=== PATIENT | female | born 1940 | race Caucasian/White ===

== ENCOUNTER → 2020-10-16 01:05 | Outpatient (CLI) | payer MEDICARE, SELFPAY ==
[2020-10-16 19:15] LABS: SARS-CoV-2 RNA PCR Negative
== END ==
PROVIDERS: PCP Internal Medicine; Visit Provider Internal Medicine Gastroenterology
DX: Z01.812 Encounter for preprocedural laboratory examination (principal); Z20.822 Contact with and (suspected) exposure to COVID-19
CPT/HCPCS: C9803; U0003; U0005

== ENCOUNTER 2020-10-19 00:50 | Day surgery (SDC) | payer MEDICARE, SELFPAY ==
[2020-10-06 13:38] VITALS: BMI 26.7
--- NOTE | 2020-10-18 11:40 | WPDANESEPPF ---
Anes - Initial Pre Proc Eval Procedure: Operation Date: 10/19/20 08:30 Proposed Procedures p Screening Colonoscopy - Soham Quintana DO Date/Time: 10/18/20 11:40 Surgeon: Soham Quintana DO Pre Op Diagnosis: Neoplasm Screening Patient Data Age: 79 Gender: F Height: 1.57 m Weight: 66.3 kg Allergies Allergy/AdvReac Type Severity Reaction Status Date / Time No Known Drug Allergies Allergy Unknown X Verified 10/06/20 13:33 Home Medications Medication Instructions Recorded Confirmed Type calcium carbonate 500 mg calcium 500 mg PO DAILY 06/08/19 10/06/20 History (1,250 mg) chewable tablet cetirizine 10 mg tablet 10 mg PO DAILY PRN tablet 06/08/19 10/06/20 History fluticasone propionate 50 2 spray NASAL DAILY 06/08/19 10/19/20 History mcg/actuation nasal spray,suspension glucosamine sulfate 500 mg tablet 500 mg PO BID 06/08/19 10/06/20 History magnesium 250 mg tablet 250 mg PO DAILY 06/08/19 10/06/20 History mecobalamin (vitamin B12) 1,000 1,000 mcg SUBLINGUAL DAILY 06/08/19 10/06/20 History mcg disintegrating tablet,sublingual metoprolol succinate 25 mg 25 mg PO DAILY 06/08/19 10/06/20 History tablet,extended release 24 hr pyridoxine (vitamin B6) 50 mg 50 mg PO DAILY 06/08/19 10/06/20 History tablet rivaroxaban 20 mg tablet 15 mg PO DAILY 06/08/19 10/19/20 History zinc sulfate 66 mg tablet 66 mg PO DAILY 06/08/19 10/19/20 History vitamin E 200 unit capsule 200 unit PO DAILY 06/14/19 10/19/20 History amlodipine 5 mg tablet 5 mg PO DAILY #30 tablet 12/14/19 10/19/20 Rx hydrochlorothiazide 25 mg tablet 25 mg PO DAILY #90 tablet 05/17/20 10/06/20 Rx levothyroxine 150 mcg tablet 150 mcg PO DAILY #90 tablet 06/26/20 10/06/20 Rx losartan 100 mg tablet 100 mg PO DAILY #90 tablet 06/26/20 10/06/20 Rx terazosin 2 mg capsule 2 mg PO .hs #90 cap 08/16/20 10/06/20 Rx Acidophilus Probiotic 1 caplet PO DAILY 10/19/20 10/19/20 History B-Complex W/Vitamin B-12 1 caplet PO DAILY 10/19/20 10/19/20 History potassium 1 caplet PO DAILY 10/19/20 10/19/20 History Patient hx anesthesia problems: none Family hx anesthesia problems: none PMFSH Past Medical History Medical History (Updated 10/19/20 @ 07:56 by Soham Quintana DO) Adenomatous colon polyp Anemia Elevated LDL cholesterol level Essential (primary) hypertension Hx of atrial fibrillation without current medication Hx of thyroid cancer Surgical History Surgical History (Updated 10/19/20 @ 07:57 by Soham Quintana DO) H/O colonoscopy H/O hemicolectomy History of hysterectomy Status post placement of other cardiac pacemaker Family History Family History Father Patient's father is Mother Patient's mother is Social History Social History Smoking status: Never smoker Second hand tobacco smoke exposure: No Alcohol intake: never Substance use type: does not use Living arrangements: with family Gender identity (if verbalized by the patient): Female Spiritual care concerns: No Anes - Eval Final PreProcedure Day of Procedure 10/18/20 11:40 Patient weight: overweight Heart: regular rate and rhythm and murmur Lungs: clear to auscultation and normal air movement Airway: Mallampati scale class II Neurological: alert and oriented Last oral intake: >/= 8 hours ASA classification: III Emergent: no Anesthetic plan: proceed Anesthesia type and monitoring: general GIVS and standard monitoring Informed Consent: The patient's anesthetic plan and its attendant risks and benefits were discussed with the patient/family/POA. Questions were solicited and answers provided to the satisfaction of the patient/family/POA.
[2020-10-19 07:12] VITALS: BP 138/1; RESP 18; TEMP 36.3; O2SAT 97; BMI 26.4
[2020-10-19] MEDS: LACTATED RINGERS 1,000 ML 150 ML IV CONT (07:29)
--- NOTE | 2020-10-19 08:28 | WPDGICN ---
GI Consult Note Consult date/time: 10/19/20 08:28 HPI: Reason for visit colonoscopy. This very pleasant lady's here at the request of the primary physician. Impression: Screening colonoscopy. AFib. Status post pacemaker placement. Thyroid cancer. status post thyroidectomy. Hypertension. Hyperlipidemia. Recommendation: Colonoscopy. History: Very pleasant lady is here for screening colonoscopy. GI review systems negative. Physical examination: General: very pleasant patient in no acute distress. HEENT: Head was normocephalic sclerae is clear mouth without masses neck was supple. Heart: Rate rhythm regular without S3 or S4.Significant systolic murmur that radiates to the carotids in the anterior precordium. Lungs: CTA. Abdomen: Soft with no guarding or rigidity. Bowel sounds were active. Neurologic: Cranial nerves 2 through 12 intact. No focal defects. No clonus. Musculoskeletal system: Revealed no joint tenderness or swelling no muscle atrophy. Extremities: Reveal no significant edema. Skin: Warm and dry with normal turgor. Mental status: intact. Patient is alert and oriented. Review of Systems Review of Systems: All systems reviewed & are unremarkable except as noted in HPI and below PMFSH Past Medical History Medical History (Updated 10/19/20 @ 08:28 by Soham Quintana DO) Anemia Elevated LDL cholesterol level Essential (primary) hypertension Hx of atrial fibrillation without current medication Hx of thyroid cancer Surgical History Surgical History (Updated 10/19/20 @ 07:57 by Soham Quintana DO) H/O colonoscopy H/O hemicolectomy History of hysterectomy Status post placement of other cardiac pacemaker Family History Family History Father Patient's father is Mother Patient's mother is Social History Social History Smoking status: Never smoker Second hand tobacco smoke exposure: No Alcohol intake: never Substance use type: does not use Living arrangements: with family Gender identity (if verbalized by the patient): Female Spiritual care concerns: No Meds Home Medications and Allergies Home Medications Medication Instructions Recorded Confirmed Type calcium carbonate 500 mg calcium 500 mg PO DAILY 06/08/19 10/06/20 History (1,250 mg) chewable tablet cetirizine 10 mg tablet 10 mg PO DAILY PRN tablet 06/08/19 10/06/20 History fluticasone propionate 50 2 spray NASAL DAILY 06/08/19 10/19/20 History mcg/actuation nasal spray,suspension glucosamine sulfate 500 mg tablet 500 mg PO BID 06/08/19 10/06/20 History magnesium 250 mg tablet 250 mg PO DAILY 06/08/19 10/06/20 History mecobalamin (vitamin B12) 1,000 1,000 mcg SUBLINGUAL DAILY 06/08/19 10/06/20 History mcg disintegrating tablet,sublingual metoprolol succinate 25 mg 25 mg PO DAILY 06/08/19 10/06/20 History tablet,extended release 24 hr pyridoxine (vitamin B6) 50 mg 50 mg PO DAILY 06/08/19 10/06/20 History tablet rivaroxaban 20 mg tablet 15 mg PO DAILY 06/08/19 10/19/20 History zinc sulfate 66 mg tablet 66 mg PO DAILY 06/08/19 10/19/20 History vitamin E 200 unit capsule 200 unit PO DAILY 06/14/19 10/19/20 History amlodipine 5 mg tablet 5 mg PO DAILY #30 tablet 12/14/19 10/19/20 Rx hydrochlorothiazide 25 mg tablet 25 mg PO DAILY #90 tablet 05/17/20 10/06/20 Rx levothyroxine 150 mcg tablet 150 mcg PO DAILY #90 tablet 06/26/20 10/06/20 Rx losartan 100 mg tablet 100 mg PO DAILY #90 tablet 06/26/20 10/06/20 Rx terazosin 2 mg capsule 2 mg PO .hs #90 cap 08/16/20 10/06/20 Rx Acidophilus Probiotic 1 caplet PO DAILY 10/19/20 10/19/20 History B-Complex W/Vitamin B-12 1 caplet PO DAILY 10/19/20 10/19/20 History potassium 1 caplet PO DAILY 10/19/20 10/19/20 History Allergies Allergy/AdvReac Type Severity Reaction Stat
[2020-10-19 08:46] VITALS: BP 132/56; PULSE 57; RESP 14; O2SAT 99
[2020-10-19 08:56] VITALS: BP 115/53; PULSE 52; RESP 14; O2SAT 98
[2020-10-19 09:06] VITALS: BP 134/75; PULSE 51; RESP 18; O2SAT 98
== END 2020-10-19 09:10 | disposition home or self-care (01) ==
PROVIDERS: PCP Internal Medicine; Visit Provider Internal Medicine Gastroenterology
PROC: 0DJD8ZZ Inspection of Lower Intestinal Tract, Via Natural or Artificial Opening Endoscopic (ICD-10-PCS; CPT 45378; principal; 2020-10-19 08:30)
DX: Z12.11 Encounter for screening for malignant neoplasm of colon (principal); K57.30 Diverticulosis of large intestine without perforation or abscess without bleeding; K63.3 Ulcer of intestine; K56.699 Other intestinal obstruction unspecified as to partial versus complete obstruction; K63.5 Polyp of colon; K64.8 Other hemorrhoids; Z98.0 Intestinal bypass and anastomosis status; Z90.49 Acquired absence of other specified parts of digestive tract; D64.9 Anemia, unspecified; E78.00 Pure hypercholesterolemia, unspecified; I10 Essential (primary) hypertension; I48.91 Unspecified atrial fibrillation; E89.0 Postprocedural hypothyroidism; Z95.0 Presence of cardiac pacemaker; Z85.850 Personal history of malignant neoplasm of thyroid; Z79.01 Long term (current) use of anticoagulants
CPT/HCPCS: 45380; 88305; C9803; J2001; J2704; J7120; U0003; U0005

== ENCOUNTER → 2021-05-04 02:39 | Outpatient (CLI) | payer MEDICARE, SELFPAY ==
[2021-05-04 16:36] LABS: SARS-CoV-2 RNA PCR Positive
== END ==
PROVIDERS: PCP Internal Medicine; Visit Provider Physician Assistant
DX: U07.1 COVID-19 (principal)
CPT/HCPCS: C9803; U0003; U0005

== ENCOUNTER 2022-12-15 07:56 | Emergency (ER) | payer MEDICARE, SELFPAY ==
[2022-12-15] VITALS (23 sets, daily range): BP systolic 141–181; BP diastolic 47–70; PULSE 51–66; RESP 11–24; TEMP 36.4; O2SAT 91–97
--- NOTE | ~2022-12-15 | CT_ITS ---
EXAMINATION: CT abdomen pelvis w con INDICATION: Lower abdominal pain TECHNIQUE: Computed tomographic images of the abdomen and pelvis were obtained after the administrati on of 100 cc of Omnipaque 350 intravenous contrast. The dose-length product (DLP) was 397.44 mGy-cm. Automated exposure control and iterative reconstruction technique were employed. COMPARISON: None available FINDINGS: Cardiomegaly is noted. The liver, spleen, pancreas, gallbladder, and adrenal glands are nor mal. There is a 4 mm stone in the proximal right ureter causing moderate hydronephrosis. The urinary bladder is distended. The left kidney is unremarkable. No pathologically enlarged abdominal or pelvic lymph nodes are identified. A large volume of colonic stool is present. No free intraperitoneal gas or evidence of bowel obstruction. There is moderate lumbar spondylosis. IMPRESSION: 1. 4 mm stone of the proximal right ureter causing moderate hydronephrosis. 2. Distended urinary bladder. 3. Constipation. Reviewed, dictated and finalized at location A.
--- NOTE | 2022-12-15 08:07 | ECG_ITS ---
Measurements Intervals [place] Rate: 64 P: 67 LA: 175 QRS: -67 QRSD: 138 T: 99 QT: 443 QTc: 460 Interpretive Statements SINUS RHYTHM LEFT AXIS DEVIATION LEFT BUNDLE BRANCH BLOCK BASELINE ARTIFACT- I, II, III, AVR, AVL, AVF, V1-V6 ABNORMAL ECG NO PREVIOUS ECG AVAILABLE FOR COMPARISON Electronically Signed On 12-15-2022 8:55:12 CDT by Rodriguez Mario D.O.
[2022-12-15 08:17] LABS: Basophils Absolute Auto 0.1 K/mm3 (0.0-0.1); Basophils Percent Auto 1.4 % (0.2-1.2); Eosinophils Absolute Auto 0.1 K/mm3 (0-0.3); Eosinophils Percent Auto 2.4 % (0-4.4); Hematocrit 34.5 % (37.0-47.0); Hemoglobin 11.5 g/dL (12.0-15.0); Immature Granulocyte Absolute 0.01 K/mm3 (0.00-0.031); Immature Granulocyte Percent A 0.3 % (0-0.5); Lymphocytes Absolute Auto 1.82 K/mm3 (0.9-3.2); Lymphocytes Percent Auto 49.3 % (18.3-44.2); Mean Corpuscular HGB Conc 33.3 g/dl (32-36); Mean Corpuscular Hemoglobin 30.8 pg (26-34); Mean Corpuscular Volume 92.5 fl (80-100); Mean Platelet Volume 11.1 fl (7.4-10.4); Monocytes Absolute Auto 0.6 K/mm3 (0.1-0.6); Monocytes Percent Auto 16.8 % (2.6-8.5); Neutrophils Absolute Auto 1.1 K/mm3 (1.3-6.7); Neutrophils Percent Auto 29.8 % (45.5-73.1); Platelet Count Result 183 k/mm3 (150-375); Red Blood Count 3.73 M/mm3 (4.2-5.4); Red Cell Distribution Width 12.7 % (11.5-14.5); White Blood Count 3.7 K/mm3 (4.5-10.0)
[2022-12-15 08:27] LABS: Alanine Aminotransferase 21 U/L (6-35); Albumin Level 4.2 g/dL (3.5-5.1); Alkaline Phosphatase 84 U/L (38-126); Anion Gap 8 mmol/L (8-16); Aspartate Amino Transferase 32 U/L (14-36); Bilirubin,Total 0.4 mg/dL (0.2-1.3); Blood Urea Nitrogen 16 mg/dL (7-17); Calcium 9.6 mg/dL (8.4-10.2); Carbon Dioxide 30 mmol/L (22-30); Chloride 99 mmol/L (98-107); Estimated CRCL calculation 33 ml/min; Estimated Glomerular Filt Rate 48; Glucose 113 mg/dL (65-110); Lipase 55 U/L (23-300); Potassium 3.4 mmol/L (3.4-5.0); Sodium 137 mmol/L (137-145)
[2022-12-15 08:29] LABS: INR 1.8; Prothrombin Time 21.9 Seconds (11.1-14.7)
[2022-12-15 08:31] LABS: Partial Thromboplastin Time 39.7 SECONDS (22.3-36.8)
[2022-12-15 08:39] LABS: Troponin I < 0.012 ng/mL (0.000-0.034)
[2022-12-15] MEDS: SODIUM CHLORIDE 0.9% IV 1,000 ML 999 ML IV CONT (09:10)
[2022-12-15] MEDS: ONDANSETRON INJ 4 MG/2 ML VIAL IV PUSH (09:11)
[2022-12-15] MEDS: MORPHINE SULFATE (*CRX) 4 MG/ML INJ IV PUSH (09:12)
[2022-12-15 10:45] LABS: Appearance Urine Clear (Clear); Bacteria Urine 4+ /hpf; Bilirubin Urine Negative (Negative); Blood Urine Negative (Negative); Color Urine Yellow (Yellow); Glucose Urine UA Negative (Negative); Ketones Urine Negative (Negative); Leukocyte Esterase Ur 3+ LEU/UL (Negative); Nitrate Urine Positive (Negative); Non Pathogenic Casts 0-2; Protein Urine Negative (Negative); RBC Urine 0-2 /hpf (0-2); Specific Grav Ur 1.009 (1.001-1.035); Squamous Epithelial Cell Urine None seen /hpf (Few); Urobilinogen Urine 0.2 mg/dL (<2.0); WBC Urine 21-50 /hpf; pH Urine 6.5 (5.0-9.0)
[2022-12-15 10:59] LABS: Add Urine Microscopic? YES
--- NOTE | 2022-12-15 11:22 | ED.ABDPAIN ---
HPI - Abdominal Pain General Chief Complaint: Abdominal Pain Stated Complaint: abd pain, radiates Time Seen by Provider: 12/15/22 08:41 Source: patient, EMS, RN notes reviewed and old records reviewed Mode of arrival: EMS Limitations: no limitations History of Present Illness HPI narrative: This is an 81 year old female who presents for evaluation of sudden onset abdominal pain. She reports she develop lower abdominal pain that radiated to her epigastrium. Her pain is intermittent and it seems to occur in waves. She states she feels bloated like she needs to pass gas. She has nausea but no vomiting. She reports she has had a bowel obstruction in the past that feels similar. She states she was told she was hot by EMS but she is unsure of a fever. She denies urinary symptoms. Related Data Home Medications Medication Instructions Recorded Confirmed cetirizine 10 mg tablet (All Day 10 mg PO DAILY PRN Allergy Symptoms 06/08/19 05/03/22 Allergy (cetirizine)) fluticasone propionate 50 2 spray intranasal DAILY 06/08/19 05/03/22 mcg/actuation nasal spray,suspension (Flonase Allergy Relief) glucosamine sulfate 500 mg tablet 500 mg PO BID 06/08/19 05/03/22 (Glucosamine) magnesium 250 mg tablet 250 mg PO DAILY 06/08/19 05/03/22 mecobalamin (vitamin B12) 1,000 1,000 mcg sublingual DAILY 06/08/19 05/03/22 mcg disintegrating tablet,sublingual metoprolol succinate 25 mg 25 mg PO DAILY 06/08/19 05/03/22 tablet,extended release 24 hr pyridoxine (vitamin B6) 50 mg 50 mg PO DAILY 06/08/19 05/03/22 tablet rivaroxaban 20 mg tablet (Xarelto) 15 mg PO DAILY 06/08/19 05/03/22 zinc sulfate 66 mg tablet (Zinc-15) 66 mg PO DAILY 06/08/19 05/03/22 vitamin E 200 unit capsule 200 unit PO DAILY 06/14/19 05/03/22 Acidophilus Probiotic 1 caplet PO DAILY 10/19/20 05/03/22 B-Complex W/Vitamin B-12 1 caplet PO DAILY 10/19/20 05/03/22 potassium 1 caplet PO DAILY 10/19/20 05/03/22 Allergies Allergy/AdvReac Type Severity Reaction Status Date / Time No Known Drug Allergies Allergy Unknown X Verified 05/03/22 09:32 Review of Systems Constitutional: Constitutional: Denies weakness Cardiovascular: Cardiovascular: Denies syncope, Denies rapid heart rate, Denies irregular heart rhythm, Denies leg edema and Denies dyspnea Respiratory: Respiratory: Denies chest congestion, Denies hemoptysis, Denies excessive phlegm production and Denies dyspnea Gastrointestinal: Gastrointestinal: Reports abdominal pain, Reports bloating, Denies hematochezia, Denies diarrhea, Reports nausea and Denies vomiting Genitourinary: Genitourinary: Denies hematuria and Denies dysuria Musculoskeletal: Musculoskeletal: Denies joint swelling, Denies loss of height and Denies muscle weakness Neurologic: Denies syncope, Denies focal weakness and Denies weakness PMFSH Past Medical History Medical History Anemia Elevated LDL cholesterol level Essential (primary) hypertension Hx of atrial fibrillation without current medication Hx of thyroid cancer Surgical History Surgical History H/O colonoscopy H/O hemicolectomy History of hysterectomy Status post placement of other cardiac pacemaker Family History Family History Father Patient's father is Mother Patient's mother is Social History Social History (Updated 05/03/22 @ 09:33 by Guerline Katz MA) Smoking status: Never smoker Second hand tobacco smoke exposure: No Alcohol intake: never Substance use type: does not use Lack of Transportation: No Current Housing: I Have Housing Concerned About Future Housing: No Difficulty Paying Gas/Electric Bills: No Difficulty Paying for Meds: No Currently Unemployed: Decline to Answer Education: Decline to Answer Difficulty w/ Childcare or Family Ca
[2022-12-15] MEDS: TAMSULOSIN HCL 0.4 MG CAPSULE PO (11:49)
== END 2022-12-15 12:52 | disposition home or self-care (01) ==
PROVIDERS: Emergency Provider General Practice; PCP Internal Medicine
DX: N13.2 Hydronephrosis with renal and ureteral calculous obstruction (principal); N39.0 Urinary tract infection, site not specified; I48.91 Unspecified atrial fibrillation; I10 Essential (primary) hypertension; D64.9 Anemia, unspecified; E78.00 Pure hypercholesterolemia, unspecified; Z85.850 Personal history of malignant neoplasm of thyroid; Z79.01 Long term (current) use of anticoagulants; Z90.49 Acquired absence of other specified parts of digestive tract; Z90.710 Acquired absence of both cervix and uterus
CPT/HCPCS: 36415; 74177; 80053; 81001; 83690; 84484; 85025; 85610; 85730; 87077; 87086; 87186; 93005; 96361; 96365; 96375; 99284; A9270; J0696; J2270; J2405; J7030; Q9967

== ENCOUNTER 2022-12-26 16:09 | Outpatient (CLI) | payer MEDICARE, SELFPAY ==
--- NOTE | ~2022-12-26 | CT_ITS ---
EXAMINATION: CT abdomen pelvis w con DATE: 12/26/2022 16:42 INDICATION: Right ureteral stone. TECHNIQUE: Computed tomography (CT) of the abdomen and pelvis was performed with 100 mL Omnipaque 350 intravenous contrast. Automated exposure control and iterative reconstruction technique were employe d. The dose-length product was 331.87 mGy-cm. COMPARISON: CT abdomen and pelvis 12/15/2022 FINDINGS: The visualized portions of the lung bases demonstrate minimal atelectasis. A calcified left lung nodule is consistent with old granulomatous disease. There is a 3 mm nodule in left lower lobe, likely benign. No pleural effusion. Cardiomegaly is noted. There are pacer wires in right atrium and right ventricle. No pericardial effusion. There is a 5 mm cyst in the liver. The gallbladder, spleen , pancreas, and adrenal glands are normal. There are cysts in right kidney measuring up to 9 mm. Ther e is mild right hydronephrosis with transition point at the ureteropelvic junction. There are phlebol iths in right ovarian vein. Left kidney is normal. The bladder is distended. There are no dilated lo ops of bowel. There are changes of right hemicolectomy. There is calcified atherosclerosis of the aor ta and many of the other arteries. There are no pathologically enlarged lymph nodes. There is no free intraperitoneal fluid. There is moderate thoracic and lumbar spondylosis. IMPRESSION: 1. No urolithiasis. 2. Mild right hydronephrosis with transition point at the ureteropelvic junction. Reviewed, dictated and finalized at location E. IMPRESSION: 1. No urolithiasis. 2. Mild right hydronephrosis with transition point at the ureteropelvic junctio n.
--- NOTE | ~2022-12-26 | XR_ITS ---
EXAMINATION: XR abdomen/kub 1V DATE: 12/26/2022 16:23 INDICATION: Right ureteral stone. TECHNIQUE: A supine view of the abdomen on 2 radiographs was obtained. COMPARISON: CT abdomen and pelvis 12/15/2022 FINDINGS: There are no dilated loops of bowel. There is a moderate volume of stool in the colon. A pa cer wire overlies right ventricle. There are phleboliths in the pelvis. IMPRESSION: 1. No visible urolithiasis. Reviewed, dictated and finalized at location E. IMPRESSION: 1. No visible urolithiasis.
== END 2022-12-26 16:10 | disposition home or self-care (01) ==
PROVIDERS: PCP Internal Medicine; Visit Provider Urology
DX: N20.1 Calculus of ureter (principal)
CPT/HCPCS: 74018; 74177; Q9967

== ENCOUNTER 2023-02-03 08:40 | Outpatient (CLI) | payer MEDICARE, SELFPAY ==
--- NOTE | ~2023-02-03 | NM_ITS ---
EXAMINATION: [facility] renal scan DATE: 02/03/2023 09:52 INDICATION: Right hydronephrosis. TECHNIQUE: 7.7 mCi Tc-99m MAG3 was administered IV. 40 mg furosemide was administered IV immediately afterward. The patient was scanned in the supine position. A posterior abdominal radionuclide angiog justo was obtained. A subsequent time course of static images of the kidneys, ureters, and bladder was obtained. COMPARISON: CT abdomen and pelvis 12/26/2022 FINDINGS: The posterior abdominal radionuclide angiogram and sequential static images show normal siz e, position, and morphology of the kidneys. Peak renal parenchymal uptake was 5 min in right kidney a nd 3 min in left kidney (normal peak 3-5 minutes). The relative early renal uptake was 34% on the ri ght and 66% on the left (<40% is abnormal). No abnormalities of the ureters or bladder are seen. T1/2 for clearance of activity from the right kidney and proximal collecting system was 38 minutes. T1/2 for clearance of activity from the left kidney and proximal collecting system was 85 minutes. Notes on interpretation: T1/2 <10 minutes is normal, 10-15 minutes is low grade obstruction of questi onable clinical significance, 15-20 minutes is partial obstruction that is likely clinically signific ant, >20 minutes is high grade obstruction. Note that false positives may be seen with supine positio earl, dehydration, severely dilated nonobstructed kidney, atonic collecting system, poor renal functi on, and chronic furosemide use. IMPRESSION: 1. Relatively decreased right kidney function, which is 34% of total renal function. 2. Delayed contrast clearance from both kidneys. Given that the prior CT showed mild right hydroneph rosis and no left-sided hydronephrosis, this finding may be secondary to decreased renal function or dehydration. Reviewed, dictated and finalized at location A. IMPRESSION: 1. Relatively decreased right kidney function, which is 34% of total renal fun ction. 2. Delayed contrast clearance from both kidneys. Given that the prior CT showe d mild right hydronephrosis and no left-sided hydronephrosis, this finding may be secondary to decreased renal function or dehydration.
== END 2023-02-03 08:41 | disposition home or self-care (01) ==
PROVIDERS: PCP Internal Medicine; Visit Provider Urology
DX: N13.30 Unspecified hydronephrosis (principal)
CPT/HCPCS: 78708; A9562; J1940

== ENCOUNTER 2023-10-03 19:43 | Emergency (ER) | payer MEDICARE, SELFPAY ==
--- NOTE | ~2023-10-03 | XR_ITS ---
EXAMINATION: XR knee LT min 4V DATE: 10/03/2023 21:14 INDICATION: Left knee pain. Fall from ladder. TECHNIQUE: 4 views of left knee were obtained. COMPARISON: None. FINDINGS: There is a fracture of lateral tibial plateau with up to 5 mm depression of the articular s urface. There is mild tricompartmental osteoarthritis. There is a large lipohemarthrosis. IMPRESSION: 1. Lateral tibial plateau fracture. 2. Mild left knee osteoarthritis. 3. Large lipohemarthrosis. Reviewed, dictated and finalized at location E.
--- NOTE | ~2023-10-03 | CT_ITS ---
EXAMINATION: CT lumbar spine wo con DATE: 10/03/2023 21:28 INDICATION: Low back pain. Fall from ladder. TECHNIQUE: Computed tomography (CT) of the lumbar spine was performed without intravenous contrast. A utomated exposure control and iterative reconstruction technique were employed. The dose-length produ ct was 343.79 mGy-cm. COMPARISON: None FINDINGS: Bone alignment is normal. Vertebral body heights are normal. There is mildly decreased disc height at L2-L3 and L3-L4, moderately decreased disc height at L4-L5, and severely decreased disc he ight at L5-S1. The following disc levels are specifically discussed: L1-L2: The disc is bulging. There is severe bilateral facet joint osteoarthritis. There is mild bilat eral neural foraminal stenosis. There is mild central canal stenosis. L2-L3: The disc is bulging. There is severe bilateral facet joint osteoarthritis. There is mild bilat eral neural foraminal stenosis. There is mild central canal stenosis. L3-L4: The disc is bulging. There is severe bilateral facet joint osteoarthritis. There is mild right and moderate left neural foraminal stenosis. There is mild central canal stenosis. L4-L5: The disc is bulging with superimposed central extrusion. There is severe bilateral facet joint osteoarthritis. There is moderate right and mild left neural foraminal stenosis. There is moderate c entral canal stenosis. L5-S1: The disc is bulging. There is severe bilateral facet joint osteoarthritis. There is mild bilat eral neural foraminal stenosis. There is mild central canal stenosis. IMPRESSION: 1. No fracture. 2. Severe lumbar spondylosis. Reviewed, dictated and finalized at location E.
--- NOTE | ~2023-10-03 | XR_ITS ---
EXAMINATION: XR ankle LT min 3V DATE: 10/03/2023 21:14 INDICATION: Fall from ladder. Left ankle injury. TECHNIQUE: 4 views of left ankle were obtained. COMPARISON: None. FINDINGS: Bone alignment is normal. No fracture. Joint spaces are normal. There are enthesophytes at the posterior and plantar aspects of calcaneal tuberosity. There is ankle soft tissue swelling. IMPRESSION: 1. No fracture. Reviewed, dictated and finalized at location E. IMPRESSION: 1. No fracture.
--- NOTE | ~2023-10-03 | CT_ITS ---
EXAMINATION: CT pelvis wo con DATE: 10/03/2023 21:28 INDICATION: Left hip and thigh pain. Fall from ladder. Low back pain. TECHNIQUE: Computed tomography (CT) of the pelvis was performed without intravenous contrast. Automat ed exposure control and iterative reconstruction technique were employed. The dose-length product was 343.79 mGy-cm. COMPARISON: None FINDINGS: There is cortical thinning of right kidney. There is mild right hydronephrosis. There is a 12 mm cyst in right kidney. The bladder is markedly distended. There is diverticulosis of the colon w ithout evidence of diverticulitis. There are no pathologically enlarged lymph nodes. There is no free intraperitoneal fluid. There is severe lumbar spondylosis. There is mild osteoarthritis of the hips. IMPRESSION: 1. No fracture. 2. Mild right hydronephrosis. Markedly distended bladder. Reviewed, dictated and finalized at location E.
[2023-10-03 19:43] VITALS: BP 179/56; PULSE 67; RESP 17; TEMP 36.6; O2SAT 100
--- NOTE | 2023-10-03 20:45 | ED.FALL ---
HPI - Fall General Chief Complaint: Fall Stated Complaint: fall from ladder Time Seen by Provider: 10/03/23 19:57 Source: patient Mode of arrival: EMS Limitations: no limitations History of Present Illness HPI Narrative: Patient is an 82-year-old female who presents the ED via EMS with report of a fall from a ladder. Patient reports she was up on a ladder cleaning on top of her cabinets when she slipped and fell. She fell backwards onto her bottom and states her left leg twisted in the process. She complains of pain to her left thigh/hip, left knee, lower back. States she is unable to bear any weight on her left leg. EMS was contacted. Denies numbness or tingling. She did not hit her head or lose consciousness. Denied any prodromal symptoms prior to fall. Denies dizziness, lightheadedness, nausea, chest pain, shortness breath, abdominal pain, incontinence, saddle anesthesia. Patient is on Xarelto due to history of AFib. Related Data Home Medications Medication Instructions Recorded Confirmed cetirizine 10 mg tablet (All Day 10 mg PO DAILY PRN Allergy Symptoms 06/08/19 08/11/23 Allergy (cetirizine)) fluticasone propionate 50 2 spray intranasal DAILY 06/08/19 08/11/23 mcg/actuation nasal spray,suspension (Flonase Allergy Relief) glucosamine sulfate 500 mg tablet 500 mg PO BID 06/08/19 08/11/23 (Glucosamine) magnesium 250 mg tablet 250 mg PO DAILY 06/08/19 08/11/23 mecobalamin (vitamin B12) 1,000 1,000 mcg sublingual DAILY 06/08/19 08/11/23 mcg disintegrating tablet,sublingual pyridoxine (vitamin B6) 50 mg 50 mg PO DAILY 06/08/19 08/11/23 tablet rivaroxaban 20 mg tablet (Xarelto) 15 mg PO DAILY 06/08/19 08/11/23 zinc sulfate 66 mg tablet (Zinc-15) 66 mg PO DAILY 06/08/19 08/11/23 vitamin E 200 unit capsule 200 unit PO DAILY 06/14/19 08/11/23 Acidophilus Probiotic 1 caplet PO DAILY 10/19/20 08/11/23 B-Complex W/Vitamin B-12 1 caplet PO DAILY 10/19/20 08/11/23 potassium 1 caplet PO DAILY 10/19/20 08/11/23 Allergies Allergy/AdvReac Type Severity Reaction Status Date / Time No Known Drug Allergies Allergy Unknown X Verified 10/03/23 19:51 Review of Systems Review of Systems: CONSTITUTIONAL: Denies fever, chills, or sweats. GASTROINTESTINAL: Denies abdominal pain, nausea, vomiting, or diarrhea. GENITOURINARY: Denies dysuria or hematuria. MUSCULOSKELETAL: See HPI. NEUROLOGIC: Denies HI, LOC, headache, dizziness, numbness, or weakness. All systems reviewed & are unremarkable except as noted in HPI and below PMFSH Past Medical History Medical History Anemia Elevated LDL cholesterol level Essential (primary) hypertension Hx of atrial fibrillation without current medication Hx of thyroid cancer Surgical History Surgical History H/O colonoscopy H/O hemicolectomy History of hysterectomy Status post placement of other cardiac pacemaker Family History Family History Father Patient's father is Mother Patient's mother is Social History Social History Smoking status: Never smoker Second hand tobacco smoke exposure: No Alcohol intake: never Substance use type: does not use Lack of Transportation: No Current Housing: I Have Housing Concerned About Future Housing: No Difficulty Paying Gas/Electric Bills: No Difficulty Paying for Meds: No Currently Unemployed: Decline to Answer Education: Decline to Answer Difficulty w/ Childcare or Family Care: Decline to Answer Living arrangements: with family Gender identity (if verbalized by the patient): Female Spiritual care concerns: No Exam Narrative: GENERAL: Elderly, obese with BMI 32.1, non-toxic, in no acute distress. HEAD: Normoc
[2023-10-03] MEDS: MORPHINE SULFATE (*CRX) 4 MG/ML INJ IV PUSH (20:50)
[2023-10-03] MEDS: ONDANSETRON INJ 4 MG/2 ML VIAL IV PUSH (20:51)
[2023-10-03 21:36] VITALS: BP 153/55; PULSE 70; RESP 18; O2SAT 97
[2023-10-03 22:20] VITALS: BP 132/80; PULSE 67; RESP 18; O2SAT 97
[2023-10-03] MEDS: MORPHINE SULFATE (*CRX) 2 MG/ML INJ IV PUSH (23:05)
[2023-10-03] MEDS: oxyCODONE HCL (*CRX) 5 MG TAB IR PO (23:06)
[2023-10-03] MEDS: ACETAMINOPHEN 500 MG TABLET 1000 MG PO (23:15)
--- NOTE | 2023-10-03 23:17 | PC.NURSE ---
assumed care of pt from SAYRA Waterman at this time. pt medicated and will be discharged.
[2023-10-03 23:27] VITALS: BP 151/48; PULSE 56; RESP 16; O2SAT 97
== END 2023-10-03 23:37 | disposition home or self-care (01) ==
PROVIDERS: Emergency Provider Physician Assistant; PCP Internal Medicine
DX: S82.142A Displaced bicondylar fracture of left tibia, initial encounter for closed fracture (principal); I48.91 Unspecified atrial fibrillation; I10 Essential (primary) hypertension; Z85.850 Personal history of malignant neoplasm of thyroid; Z90.710 Acquired absence of both cervix and uterus; Z90.49 Acquired absence of other specified parts of digestive tract; Z79.01 Long term (current) use of anticoagulants; M47.816 Spondylosis without myelopathy or radiculopathy, lumbar region; M17.12 Unilateral primary osteoarthritis, left knee; N13.30 Unspecified hydronephrosis; W11.XXXA Fall on and from ladder, initial encounter
CPT/HCPCS: 72131; 72192; 73564; 73610; 96374; 96375; 96376; 99284; A9270; J2270; J2405

== ENCOUNTER 2024-01-23 10:14 | Emergency (ER) | payer MEDICARE, SELFPAY ==
--- NOTE | ~2024-01-23 | XR_ITS ---
EXAMINATION: XR wrist RT min 3V DATE: 01/23/2024 11:26 INDICATION: Right wrist injury. Fall. TECHNIQUE: 4 views of right wrist were obtained. COMPARISON: None. FINDINGS: There is a comminuted fractured of distal radius with involvement of the distal articular s urface. The main distal fracture fragment demonstrates impaction and dorsal angulation. There is 2 de grees dorsal tilt of the distal articular surface. Ulnar styloid is intact. There is mild osteoarthri tis of first carpometacarpal joint. IMPRESSION: 1. Comminuted fracture of distal radius. Reviewed, dictated and finalized at location A.
--- NOTE | 2024-01-23 10:41 | ED.UPPEXIN ---
HPI - Extremity Injury (Upper) General Chief Complaint: Extremity Injury, Upper Stated Complaint: fall, right wrist injury Time Seen by Provider: 01/23/24 10:31 Source: patient and family Mode of arrival: ambulatory Limitations: no limitations History of Present Illness HPI narrative: PATIENT MISSED HER WALKER/CHAIR AND FELL FORWARD LANDED ON THE RIGHT WRIST. TWO DAYS AGO. DENIES OTHER INJURIES. Related Data Home Medications Medication Instructions Recorded Confirmed cetirizine 10 mg tablet (All Day 10 mg PO DAILY PRN Allergy Symptoms 06/08/19 08/11/23 Allergy (cetirizine)) fluticasone propionate 50 2 spray intranasal DAILY 06/08/19 08/11/23 mcg/actuation nasal spray,suspension (Flonase Allergy Relief) glucosamine sulfate 500 mg tablet 500 mg PO BID 06/08/19 08/11/23 (Glucosamine) magnesium 250 mg tablet 250 mg PO DAILY 06/08/19 08/11/23 mecobalamin (vitamin B12) 1,000 1,000 mcg sublingual DAILY 06/08/19 08/11/23 mcg disintegrating tablet,sublingual pyridoxine (vitamin B6) 50 mg 50 mg PO DAILY 06/08/19 08/11/23 tablet rivaroxaban 20 mg tablet (Xarelto) 15 mg PO DAILY 06/08/19 08/11/23 zinc sulfate 66 mg tablet (Zinc-15) 66 mg PO DAILY 06/08/19 08/11/23 vitamin E 200 unit capsule 200 unit PO DAILY 06/14/19 08/11/23 Acidophilus Probiotic 1 caplet PO DAILY 10/19/20 08/11/23 B-Complex W/Vitamin B-12 1 caplet PO DAILY 10/19/20 08/11/23 potassium 1 caplet PO DAILY 10/19/20 08/11/23 Allergies Allergy/AdvReac Type Severity Reaction Status Date / Time No Known Drug Allergies Allergy Unknown X Verified 01/23/24 11:00 Review of Systems Review of Systems: All systems reviewed & are unremarkable except as noted in HPI and below PMFSH Past Medical History Medical History Anemia Elevated LDL cholesterol level Essential (primary) hypertension Hx of atrial fibrillation without current medication Hx of thyroid cancer Surgical History Surgical History H/O colonoscopy H/O hemicolectomy History of hysterectomy Status post placement of other cardiac pacemaker Family History Family History Father Patient's father is Mother Patient's mother is Social History Social History Smoking status: Never smoker Second hand tobacco smoke exposure: No Alcohol intake: never Substance use type: does not use Lack of Transportation: No Current Housing: I Have Housing Concerned About Future Housing: No Difficulty Paying Gas/Electric Bills: No Difficulty Paying for Meds: No Currently Unemployed: Decline to Answer Education: Decline to Answer Difficulty w/ Childcare or Family Care: Decline to Answer Living arrangements: with family Gender identity (if verbalized by the patient): Female Spiritual care concerns: No Exam Narrative: GENERAL APPEARANCE: WELL-DEVELOPED, WELL-NOURISHED SKIN: NORMAL COLOR HEAD: NORMOCEPHALIC, NONTRAUMATIC EYES: CLEAR CONJUNCTIVA ENT: OROPHARYNX NORMAL, EARS NORMAL, NOSE NORMAL NECK: SUPPLE, NONTENDER CHEST AND RESPIRATORY: AIRWAY PATENT, NO RESPIRATORY DISTRESS, NO ACCESSORY MUSCLE USE HEART: REGULAR RATE/RHYTHM ABDOMEN: SOFT, NONTENDER, NO ORGANOMEGALY, QUIET BOWEL SOUNDS VASCULAR: NORMAL PERIPHERAL PULSES, NORMAL CAPILLARY REFILL. MUSCULOSKELETAL: SLIGHT LIMITED RANGE OF MOTION OF THE RIGHT WRIST, BRUISED, NO DEFORMITY NEUROLOGIC: ALERT AND ORIENTED ?3, PASSENGER SERVICE SUPERVISOR IS NORMAL TESTED, NO GROSS MOTOR DEFICIT Course Consultations
[2024-01-23 10:48] VITALS: BP 156/62; PULSE 48; RESP 16; TEMP 36.8; O2SAT 99
[2024-01-23 12:39] VITALS: BP 157/83; PULSE 46; RESP 16; O2SAT 100
[2024-01-23 13:35] VITALS: BP 145/59; PULSE 46; RESP 16; TEMP 36.5; O2SAT 97
== END 2024-01-23 13:39 | disposition home or self-care (01) ==
PROVIDERS: Emergency Provider Emergency Medicine; PCP Internal Medicine
DX: S52.591A Other fractures of lower end of right radius, initial encounter for closed fracture (principal); I10 Essential (primary) hypertension; I48.91 Unspecified atrial fibrillation; Z86.2 Personal history of diseases of the blood and blood-forming organs and certain disorders involving the immune mechanism; Z85.850 Personal history of malignant neoplasm of thyroid; Z79.01 Long term (current) use of anticoagulants; Z90.49 Acquired absence of other specified parts of digestive tract; Z90.710 Acquired absence of both cervix and uterus; Z95.0 Presence of cardiac pacemaker; W17.89XA Other fall from one level to another, initial encounter
CPT/HCPCS: 29125; 73110; 99284; A4565

== ENCOUNTER 2024-11-08 13:35 | Emergency (ER) | payer MEDICARE, SELFPAY ==
--- NOTE | ~2024-11-08 | XR_ITS ---
XR chest 2V Ordering provider: Itzel Jones PA-C History: 83 years Female with . cough . Comparison: None. FINDINGS: MEDIASTINUM: The cardiac silhouette is slightly enlarged. Left bipolar pacemaker is noted. Prominent both sriram. LUNGS: No infiltrates, effusions or pneumothorax. OTHER: No free air under the diaphragm. IMPRESSION: No acute cardiopulmonary pathology. Reviewed, dictated and finalized at location A.
--- OUTSIDE RECORDS SUMMARY | 2024-11-08 13:37 | XMS_ITS | Clinical Summary ---
Author Organization [facility] Address [address] [address] Phone Care Team Providers Care Research Scientist Name Role Phone Shahriar Gallardo Primary Care Provider [phone] Social History Tobacco Use Types Packs/Day Years Used Date Smoking Tobacco: Never Assessed Comments Unknown Sex and Gender Information Value Date Recorded Sex Assigned at Not on file Legal Sex Female 9:24 PM CDT Gender Identity Not on file Sexual Orientation Not on file Plan of Treatment Health Maintenance Due Date Last Done Comments DEXA Bone Density 1940 Hepatitis C Virus (HCV) Screening 1940 TdaP Immunization 1940 Pneumococcal Immunization (5 0+ years) (1 of 1 - PCV) 12/21/1991 Zoster Immunization (1 of 2) 12/21/1991 Respiratory Syncytial Virus (RSV) Immunization (Adult) (1 - 1-dose 75+ series) 2016 Influenza Immunization (#1) 2024 SARS-COV-2 Immunization ( - 2023-25 season) 2024 Hepatitis B Immunization Aged Out No longer eligible based on patient's age to complete this topic Meningococcal Immunization (ACWY) Aged Out No longer eligible based on patient's age to complete this topic Rotavirus Immunization Aged Out No lo nger eligible based on patient's age to complete this topic Insurance [employer] SOI Member Subscriber Plan / Payer (Ef fective 2021-Present) Name:Tamica Sullivan Relation to Subscriber:Self Name:Tamica Sullivan Payer ID:[id number] (NAIC) Type:Not on file Address: [facility] [id number] [place] [id number] Care Teams Research Scientist Relationship Specialty Start Date End Date Shahriar Gallardo DO [address] [place], [place] [id number] PCP - General Internal Medicine 07/30/19
--- OUTSIDE RECORDS SUMMARY | 2024-11-08 13:37 | XMS_ITS | Clinical Summary ---
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
--- OUTSIDE RECORDS SUMMARY | 2024-11-08 13:37 | XMS_ITS | Clinical Summary ---
Author Organization [facility] Address [address] [place] [address] Care Team Providers Care Cardroom Attendant Name Role Phone Shahriar Gallardo Primary Care Provider Source Comments [facility],non-owned Affiliates and Associated Physician Practices is amultiple site organization consisting of ambulatory clinics and hospital sitesin [place], [place], [place] and [place]. This disclosure is being madepursuant to the Care Everywhere program and may not contain all information available regarding this patient. Last updated 18.[employer] [facility] Allergies No known active allergies Medications * Be aware that medications may not be up to date on this document. Alwaysverify current medications with the patient. amLODIPine (Norvasc) 5 MG tablet Take 1 (one) tablet by mouth once daily 12/25/2023 Active ascorbic acid (Vitamin C) 500 MG tablet Take 1 (one) tablet by mouth once daily Active B Complex Vitamins CAPS Take 1 capsule by mouth once daily Active cyanocobalamin (Vitamin B-12) 1000 MCG tablet Take 100 mcg by mouth once daily Active Flax Oil-Fish Oil-Borage Oil CAPS Take by mouth once daily Active folic acid 400 MCG tablet Take 1 (one) tablet by mouth once daily Active Glucosamine-Cho qqaofs-IXH-M-Mn (Flexi Joint) TABS Take 400-500 mg by mouth once daily Active hydroCHLOROthia zide (Hydrodiuril) 25 MG tablet Take 1 (one) tablet by mouth once daily 11/25/2023 Active levothyroxine (Synthroid) 125 MCG tablet 02/02/2024 Active losartan (Cozaar) 100 MG tablet Take 1 (one) tablet by mouth once daily 12/23/2023 Active Menaquinone-7 40 MCG TABS Take 40 mcg by mouth once daily Active metoprolol succinate XL 24hr (Toprol XL) 50 MG tablet Take 1 (one) tablet by mouth once daily 12/03/2023 Active Pyridoxine HCl 100 MG Take 1 (one) tablet by mouth once daily Active Xarelto 15 MG tablet Take 1 (one) tablet by mouth once daily Active tamsulosin (Flomax) 0.4 MG capsule Take 1 (one) capsule by mouth once daily 12/15/2022 Active terazosin (Hytrin) 2 MG capsule 02/01/2024 Active Vitamin E (Vitamin E/D-Alpha Natural) 268 MG (400 UNIT) capsule Take 1 (one) capsule by mouth once daily Active Active Problems Problem Noted Date Diagnosed Date Closed fracture of lateral portion of left tibia l plateau 02/05/2024 Social History Tobacco Use Types Packs/Day Years Used Date Smoking Tobacco: Never Smokeless Tobacco: Never Tobacco Cessation:Counseling Given: Not Answered PHQ-2 Answer Date Recorded Patient Health Questionnaire-2 Score 0 02/05/2024 Comments Unknown Sex and Gender Information Value Date Recorded Sex Assigned at Not on file Legal Sex Female 12:34 PM CDT Gender Identity Not on file Sexual Orientation Not on file Last Filed Vital Signs Vital Sign Reading Time Taken Comments Blood Pressure - - Pulse - - Temperature - - Respiratory Rate - - Oxygen Saturation - - Inhaled Oxygen Concentration - - Weight 67.1 kg (148 lb) 02/05/2024 9:57 AM CDT Height 157.5 cm (5' 2) 12/25/2023 10:44 AM CDT Body Mass Index 27.07 12/25/2023 10:44 AM CDT Plan of Treatment Health Maintenance Due Date Last Done Comments BONE DENSITY TESTING 1940 DTAP/TDAP/TD VACCINES (1 - Tdap) 1960 PNEUMOCOCCAL VACCINE 50+ (1 of 1 - PCV) 12/21/1991 ZOSTER VACCINE (1 of 2) 12/21/1991 Respiratory Syncytial Virus (RSV) Vaccine Pt: or over 60 yrs (1 - 1-dose 75+ series) 2016 COVID-19 VACCINE ( - 2023-2 5 season) 2024 DEPRESSION SCREENING 06/16/2024 11/06/2023 MEDICARE AWV CALENDAR YEAR 2024 INFLUENZA VACCINE (Season Ended) 2025 HEPATITIS B VACCINE Aged Out No longe r eligible based on patient's age to complete this topic HIB VACCINE Aged Out No longer eligi ble based on patient's age to complete this topic HPV VACCINE Aged Out No longer eligi ble based on patient's age to complete this topic MENINGOCOCCAL (Group B) VACC INE SHARED DECISION-MAKING Aged Out No longer eligibl e based on patient's age to complete this topic MENINGOCOCCAL GROUPS A/C/Y/W VACCINE Aged Out No longer eligible b ased on patient's age to complete this topic Insurance AET[employer] AENA MEDICARE ADV Care Teams Cardroom Attendant Relationship Specialty Start Date End Date Shahriar Gallardo DO [address] [place] [address] [facility] - General 12/09/20
[2024-11-08 14:03] VITALS: BP 143/66; PULSE 68; RESP 18; TEMP 36.4; O2SAT 98
--- NOTE | 2024-11-08 14:19 | ECG_ITS ---
Test Date: 2024-11-08 16:13:35 Measurements Intervals [place] Rate: 55 P: -83 WI: 275 QRS: -52 QRSD: 142 T: 81 QT: 490 QTc: 469 Interpretive Statements ELECTRONIC ATRIAL PACEMAKER MARKED LEFT AXIS DEVIATION [QRS AXIS < -30] LEFT BUNDLE BRANCH BLOCK [120+ ms QRS DURATION, 80+ ms Q/S IN V1/V2, 85+ ms R IN I/aVL/V5/V6] No previous ECG available for comparison Electronically Signed On 11-08-2024 20:34:44 CDT by Samuel Navarro M.D.
--- NOTE | 2024-11-08 14:23 | ED_ITS ---
HPI - URI/Sore Throat General Chief Complaint: Upper Respiratory Infection Stated Complaint: URI x5d, sob Time Seen by Provider: 11/08/24 16:24 Focused HPI: 83-year-old female with history of AFib on anticoagulants and hypertension presents to the emergency department for 5 days of shortness of breath, chest tightness and cough. Patient reports a productive cough with white and yellow sputum. Denies fever, lower extremity edema, hemoptysis. Denies smoking. Denies history of COPD or asthma. GENERAL: Well-appearing, well-nourished, and in no acute distress. HEAD: Normocephalic, atraumatic. CHEST: Rhonchi and coarse breath sounds throughout all lung julien. HEART: Regular rate and rhythm.? NEURO: ?Alert and oriented x3. Patient screened in triage and initial orders placed.? ?Additional care and disposition to be based upon?diagnostic testing and treatment. Related Data Home Medications ?Medication ?Instructions ?Recorded ?Confirmed ?Last Taken ?Type cetirizine 10 mg tablet (All Day 10 mg PO DAILY PRN Allergy Symptoms 06/08/19 02/27/24 Unknown History Allergy (cetirizine)) glucosamine sulfate 500 mg tablet 500 mg PO BID 06/08/19 02/27/24 10/18/20 08:00 History (Glucosamine) magnesium 250 mg tablet 250 mg PO DAILY 06/08/19 02/27/24 10/18/20 08:00 History mecobalamin (vitamin B12) 1,000 1,000 mcg sublingual DAILY 06/08/19 02/27/24 10/18/20 08:00 History mcg disintegrating tablet,sublingual pyridoxine (vitamin B6) 50 mg 50 mg PO DAILY 06/08/19 02/27/24 10/18/20 08:00 History tablet rivaroxaban 20 mg tablet (Xarelto) 15 mg PO DAILY 06/08/19 02/27/24 10/14/20 19:00 History zinc sulfate 66 mg tablet (Zinc-15) 66 mg PO DAILY 06/08/19 02/27/24 10/18/20 08:00 History vitamin E 200 unit capsule 200 unit PO DAILY 06/14/19 02/27/24 10/15/20 08:00 History Acidophilus Probiotic 1 caplet PO DAILY 10/19/20 02/27/24 10/18/20 08:00 History B-Complex W/Vitamin B-12 1 caplet PO DAILY 10/19/20 02/27/24 10/18/20 08:00 History potassium 1 caplet PO DAILY 10/19/20 02/27/24 10/18/20 08:00 History Allergies Allergy/AdvReac Type Severity Reaction Status Date / Time No Known Drug Allergies Allergy Unknown X Verified 03/03/24 15:01 [facility] Past Medical History Medical History Anemia Elevated LDL cholesterol level Hx of atrial fibrillation without current medication Essential (primary) hypertension Hx of thyroid cancer Surgical History Surgical History H/O colonoscopy H/O hemicolectomy History of hysterectomy Status post placement of other cardiac pacemaker Family History Family History Father Patient's father is Mother Patient's mother is Sibling No problems noted. Social History Social History Smoking status: Never smoker Second hand tobacco smoke exposure: No Alcohol intake: never Substance use: never Substance use type: does not use Do You Feel Safe in your Home?: Yes Lack of Transportation: No Lack of Food: Never True Current Housing: I Do Not Have Housing Concerned About Future Housing: No Difficulty Paying Gas/Electric Bills: No Difficulty Paying for Meds: No Currently Unemployed: Decline to Answer Education: Decline to Answer Difficulty w/ Childcare or Family Care: No Living arrangements: with family Occupation/Education: retired Additional occupation/education comments: [employer] Gender identity (if verbalized by the patient): Female Spiritual care concerns: No Course Vital Signs Vital signs: Vital Signs Temperature 97.6 F 11/08/24 14:03 Pulse Rate 68 11/08/24 14:03 Respiratory Rate 18 11/08/24 14:03 Blood Pressure 143/66 H 11/08/24 14:03 Pulse Oximetry 98 11/08/24 14:03 Oxygen Delivery Room Air 11/08/24 14:03 Temperature 97.6 F 11/08/24 14:03 Pulse Rate 64 11/08/24 15:44 Respiratory Rate 24 H 11/08/24 15:44 Blood Pressure 143/66 H 11/08/24 14:03 Pulse Oximetry 98 11/08/24 18:00 Oxygen Delivery Room Air 11/08/24 18:00 MDM - URI/Sore Throat Lab Data 11/08/24 15:49 11/08/24 15:49 Labs: Lab Results 11/08/24 Range/Units 15:49 WBC 5.7 (4.5-10.0) K/mm3 RBC 4.17 L (4.2-5.4) M/mm3 Hgb 11.9 L (12.0-15.0) g/dL Hct 35.3 L (37.0-47.0) % MCV 84.7 (80-100) fl MCH 28.5 (26-34) pg MCHC 33.7 (32-36) g/dl RDW 13.0 (11.5-14.5) % Plt Count 199 (150-375) k/mm3 MPV 10.7 H (7.4-10.4) fl Immature Gran % (Auto) 0.2 (0-0.5) % Neut % (Auto) 64.7 (45.5-73.1) % Lymph % (Auto) 19.1 (18.3-44.2) % [place] % (Auto) 14.1 H (2.6-8.5) % Eos % (Auto) 1.4 (0-4.4) % Baso % (Auto) 0.5 (0.2-1.2) % Lymph # (Auto) 1.08 (0.9-3.2) K/mm3 [place] # (Auto) 0.8 H (0.1-0.6) K/mm3 Eos # (Auto) 0.1 (0-0.3) K/mm3 Baso # (Auto) 0.0 (0.0-0.1) K/mm3 Abs Immat Gran (auto) 0.01 (0.00-0.031) K/mm3 Absolute Neuts (auto) 3.7 (1.3-6.7) K/mm3 Absolute Nucleated RBC 0.000 (0.0-0.012) K/mm3 Nucleated RBC % 0.0 (0.0-0.2) % PT 19.0 H (11.1-14.7) Seconds INR 1.6 APTT 41.0 H (22.3-36.8) Seconds Sodium 126 L (137-145) mmol/L Potassium 3.7 (3.4-5.0) mmol/L Chloride 89 L (98-107) mmol/L Carbon Dioxide 26 (22-30) mmol/L Anion Gap 11 (4-12) mmol/L BUN 14 (7-17) mg/dL Creatinine 1.02 H (0.7-1.0) mg/dL Estim Creat Clear Calc 34 ml/min Estimated GFR 52 L (59 - ) Glucose 97 (65-110) mg/dL Calcium 9.6 (8.4-10.2) mg/dL Total Bilirubin 0.6 (0.2-1.3) mg/dL AST 37 H (14-36) U/L ALT 17 (6-35) U/L Alkaline Phosphatase 135 H (38-126) U/L Troponin I < 0.012 (0.000-0.034) ng/mL Total Protein 8.0 (6.3-8.2) g/dL Albumin 4.7 (3.5-5.1) g/dL Influenza A (RT-PCR) Negative (Negative) Influenza B (RT-PCR) Negative (Negative) RSV (RT-PCR) Negative (Negative) SARS-CoV-2 RNA (RT-PCR) Negative (Negative) Discharge Plan Discharge Clinical Impression: Allergic rhinitis, Acute hyponatremia Patient Disposition: Left Against Medical Advice Condition: Guarded Prognosis Instructions: Hyponatremia (ED), Allergies (ED) Additional Instructions: Continue home medicine Food have high level of salt include Beats a Cold cuts Cheese Checking brought Soup Fast food Prepared dinners Pickles Canned soups Patient Language: Stateless Prescriptions: New prednisone 20 mg tablet 40 mg PO DAILY 5 Days Qty: 10 0RF fluticasone propionate [Flonase Allergy Relief] 50 mcg/actuation spray,suspension 2 spray intranasal DAILY Qty: 36.4 0RF Rx Instructions: administer into each nostril Zyrtec 10 mg capsule 10 mg PO DAILY PRN (Reason: allergy symptoms) Qty: 30 0RF benzonatate 200 mg capsule 200 mg PO TID PRN (Reason: cough) Qty: 21 0RF No Action glucosamine sulfate [Glucosamine] 500 mg tablet 500 mg PO BID pyridoxine (vitamin B6) 50 mg tablet 50 mg PO DAILY magnesium 250 mg tablet 250 mg PO DAILY Zinc-15 66 mg tablet 66 mg PO DAILY mecobalamin (vitamin B12) 1,000 mcg tablet,disintegrating 1,000 mcg SUBLINGUAL DAILY cetirizine [All Day Allergy (cetirizine)] 10 mg tablet 10 mg PO DAILY PRN (Reason: Allergy Symptoms) Xarelto 20 mg tablet 15 mg PO DAILY vitamin E 200 unit capsule 200 unit PO DAILY amlodipine 5 mg tablet 5 mg PO DAILY Qty: 30 5RF metoprolol succinate 50 mg tablet extended release 24 hr 50 mg PO DAILY Qty: 90 1RF B-Complex W/Vitamin B-12 50 mg capsule 1 caplet PO DAILY potassium 99 mg capsule 1 caplet PO DAILY Acidophilus Probiotic 100 mg capsule 1 caplet PO DAILY cyclobenzaprine 10 mg tablet 10 mg PO .HS PRN (Reason: muscle spasm) Qty: 15 0RF hydrochlorothiazide 25 mg tablet 25 mg PO DAILY Qty: 90 3RF levothyroxine 125 mcg tablet 125 mcg PO DAILY Qty: 90 2RF losartan 100 mg tablet 100 mg PO DAILY Qty: 90 3RF terazosin 2 mg capsule See Rx Instructions .ROUTE .COMPLEX Qty: 90 3RF Dose Instruction: Take 1 capsule by mouth at bedtime Rx Instructions: Take 1 capsule by mouth at bedtime Follow-up/Referrals: Paulina,Shahriar Hardwick DO [Primary Care Provider] -
--- OUTSIDE RECORDS SUMMARY | 2024-11-08 14:34 | XMS_ITS | Encounter Summary ---
Author Organization [facility] Address [address] [place] [address] Care Team Providers Care Bathhouse Keeper Name Role Phone Shahriar Gallardo MD Primary Care Provider [phone] Prateek Chavez DO Primary Care Provider [phone] Encounter Details Date Type Department Care Team (Late st Contact Info) Description 10/14/2016 Orders Only [facility] ProviderLaura MD [address] [place] [id number] Social History Tobacco Use Types Packs/Day Years Used Date Smoking Tobacco: Never Alcohol Use Standard Drinks/Week Comments No 0 (1 standard drink = 0.6 oz pur e alcohol) Comments Unknown Sex and Gender Information Value Date Recorded Sex Assigned at Not on file 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 Historical Provider [facility] ROSIE ALARCON Final Result documented in this encounter Visit Diagnoses Not on filedocumented in this encounter Care Teams Bathhouse Keeper Relationship Specialty Start Date End Date Shahriar Gallardo MD [address] [place] [address] PCP - General 09/13/16 03/09/24 Prateek Chavez DO [address] [address] PCP - General Internal Medicine 03/10/24 documented as of this encounter
--- OUTSIDE RECORDS SUMMARY | 2024-11-08 14:34 | XMS_ITS | Referral Summary ---
Author Organization [facility] [address] [place] [address] Care Team Providers Care Endocrinology Teacher Name Role Phone Prateek Chavez DO Primary Care Provider [phone] Encounters Date Type Department Care Team Description 09/24/2024 Results Follow-Up [facility] Medical Group Cardiology at [address] [place] [phone] Sai Carcamo MD NM MPI SPECT (Rest and/or Stress) Multiple Studies 09/22/2024 10:15 AM CDT Ancillary Procedure [facility] Cardiology [address] [place] [address] [place] [phone] Nonsustained ventricular tachycardia (HCC) 09/15/2024 Telephone [facility] Cardiology [address] [place] [address] [place] [phone] Sai Carcamo MD 09/08/2024 11:30 AM CDT Ancillary Procedure [facility] Cardiology [address] [place] [address] [place] [phone] Pacemaker (Primary Dx); SSS (sick sinus syndrome) (HCC); PAF (paroxysmal atrial fibrillation) (HCC) from Last 3 Months Allergies No known active allergies Medications losartan (COZAAR) 100 mg tablet take 1 by Oral route once 0 0 7 Active hydroCHLOROthiaz carol (HYDRODIURIL) 25 mg tablet take 1 tablet by oral route every day 0 0 7 Active terazosin (HYTRIN) 2 mg capsule take 1 capsule by oral route every day at bedtime 0 0 7 Active fish,bora,flax oils-om3,6,9no1 400-400-400 mg capsule Take by mouth daily. Active vitamin K2 40 mcg tablet Take 40 mcg by mouth daily. Active glucosamine-audrey d-msm-vit C-Mn 500-400-166.6 mg tablet Take 400-500 mg by mouth daily. Active b complex vitamins capsule Take 1 capsule by mouth daily Active pyridoxine (VITAMIN B-6) 100 mg tablet Take 1 tablet (100 mg total) by mouth daily Active cyanocobalamin (Vitamin B-12) 1,000 mcg tabletIndication s:Prevention of Vitamin B12 Deficiency Take 100 mcg by mouth daily. Active potassium 99 mg tablet Take 1 tablet (99 mg total) by mouth daily Active vitamin E 400 unit capsule Take 1 capsule (400 Units total) by mouth daily Active folic acid (FOLVITE) 400 mcg tablet Take 1 tablet (400 mcg total) by mouth daily Active zinc 50 mg tablet Take 50 mg by mouth daily. Active ascorbic acid (ascorbic acid) 500 mg tablet,chewable Take 1 tablet/chew tab (500 mg total) by mouth daily Active MAGNESIUM ORAL Take by mouth. Active atorvastatin (LIPITOR) 10 mg tablet Take 1 tablet (10 mg total) by mouth daily 30 tablet 11 9 Active Additional Information Patient not taking.Reported on 03/10/2024 calcium carbonate (CALCIUM 500 ORAL) Take 1 tablet by mouth daily Active levothyroxine (SYNTHROID) 125 mcg tablet Take 1 tablet (125 mcg total) by mouth daily 4 Active rivaroxaban (Xarelto) 15 mg tabletIndication s:PAF (paroxysmal atrial fibrillation) (HCC) Take 1 tablet by mouth once daily 90 tablet 3 4 Active metoprolol XL (TOPROL-XL) 50 mg extended release tabletIndication s:PAF (paroxysmal atrial fibrillation) (HCC) Take 1 tablet by mouth once daily 30 tablet 9 4 Active amLODIPine (NORVASC) 5 mg tabletIndication s:Essential (primary) hypertension Take 1 tablet by mouth once daily 90 tablet 1 5 Active Active Problems Problem Noted Date Diagnosed Date Nonrheumatic aortic valve stenosis 11/22/2020 Diastolic dysfunction without heart failure 04/17 PAF (paroxysmal atrial fibrillation) 03/31/2018 Hypercholesterolemia 03/31/2018 Chronic anticoagulation 03/31/2018 Tachy-lui syndrome 03/31/2018 Pacemaker 02/11/2017 Overview (07/16/2018): Medtronic Dual Pacemaker Dx; SSS, PAF DOI 02/11/[address] Winter[address] Carelink remote home monitoring Q3 mo, Office pacer checks Q1 yr. Left bundle branch block (LBBB) 09/09/2016 Overview (11/08/2016): LBBB (left bundle branch block) Assessment & Plan (01/05/2017 1:35 PM CDT): Intermittent LBBB Sinus bradycardia 09/09/2016 Overview (11/08/2016): Sinus bradycardia Assessment & Plan (01/05/2017 1:35 PM CDT): Still bradycardic even after verapamil Dc'd, but appears asymptomatic. Average HR off verapamile 65 BPM, improved. If recurrent pre-syncope, will do more long-term monitoring. Essential (primary) hypertension 09/09/2016 Overview (11/08/2016): Hypertension, essential Assessment & Plan (01/05/2017 1:32 PM CDT): Hypertension is at goal. Orthostasis 09/09/2016 Overview (11/08/2016): Dizziness Bilateral carotid bruits 09/09/2016 Overview (11/08/2016): Bilateral carotid bruits Assessment & Plan (01/05/2017 1:33 PM CDT): Carotid US showed mild plaque,no sx.. Tx medically w/ ASA and poss statin. Femoral bruit 09/09/2016 Overview (11/08/2016): Femoral bruit Resolved Problems Problem Noted Date Diagnosed Date Resolved Date Aortic valve calcification 11/16/2018 0 11/22/2020 Mitral valve insufficiency a nd aortic valve insufficiency 05/12/2018 11/22/2020 Other chest pain 04/09/2017 11/22/2020 Pre-syncope 09/09/2016 11/22/2020 Overview (11/08/2016): Near syncope Assessment & Plan (01/05/2017 1:34 PM CDT): Has sinus bradycardia and LBBB; at risk for bradyarrhythmias and higher degree AVB. Awareness of heartbeats 09/09/201603/17 Overview (11/08/2016): Palpitations Social History Tobacco Use Types Packs/Day Years Used Date Smoking Tobacco: Never Smokeless Tobacco: Never Tobacco Cessation:Counseling Given: Not Answered Alcohol Use Standard Drinks/Week Comments No 0 (1 standard drink = 0.6 oz pur e alcohol) Comments Unknown Sex and Gender Information Value Date Recorded Sex Assigned at Not on file Legal Sex Female 9:55 PM [employer] Gender Identity Not on file Sexual Orientation Not on file Last Filed Vital Signs Vital Sign Reading Time Taken Comments Blood Pressure 171/84 05/17/2024 2:29 PM [employer] Pulse 78 03/10/2024 3:24 PM CDT Temperature 36.5 C (97.7 F) 12/03/2019 10:06 AM CDT Respiratory Rate - - Oxygen Saturation 97% 03/10/2024 3:24 PM CDT Inhaled Oxygen Concentration - - Weight 67.6 kg (149 lb) 03/10/2024 3:24 PM CDT Height 157.5 cm (5' 2) 03/10/2024 3:24 PM CDT Body Mass Index 27.25 03/10/2024 3:24 PM CDT Plan of Treatment Not on file Medical Devices Implanted Type Area Scheduler Maintenance Device Identifier Shelf Expiration Date Model / Serial / Lot Pacemaker-2016 Implanted:02/11 by Chantelle Winter MD (Quantity not on file) Pacemaker Chest Medtronic SSS ADVISA DR DE LA ROSA / [id number] / Procedures Procedure Name Priority Date/Time Associated Diagnosis Comments NM MPI SPECT (REST AND/OR STRESS) MULTIPLE STUDIES Schedule Routine, Read Routine (OP Routine) 09/22/2024 11:48 AM CDT Nonsustained ventricular tachycardia (HCC) DEVICE CHECK - IN OFFICE Routine 09/08/2024 11:13 AM CDT SSS (sick sinus syndrome) (HCC) PAF (paroxysmal atrial fibrillation) (HCC) from Last 3 Months Results * NM MPI SPECT (Rest and/or Stress) Multiple Studies (09/22/2024 11:48 AM CDT) Anatomical Region Laterality Modality Body N/A Nuclear Medicine 09/22/2024 8:19 AM CDT Narrative 09/23/2024 7:44 AM CDT [facility] Medical [facility] Cardiology [address] [facility] [address] [address] [address] [facility] [address] [address] P:[phone] P:[phone] MPI Imaging Report Patient Name: TAMICA SULLIVAN M : 1940 Study Date: 09/22/2024 8:19:09 AM Gender: F Tech: [facility] Location: [facility] Provider: SAI CARCAMO Height(Cm): 157.5 BSA: Weight(Kg): 67.6 BMI: 27.25 Order Provider: SAI CARCAMO PHYSICIAN: Referring Physician: Dr. Chavez. HCG Physician: Luca Carcamo M.D. Interpreting Physician: José Miguel Baker M.D.,F.A.C.C. Stress Supervision: José Miguel Baker M.D.,F.A.C.C. PROCEDURES: Pharmacologic SPECT Report: Myocardial perfusion imaging with Tc99M Sestamibi SPECT at rest and stress post regadenoson (Lexiscan) infusion. INDICATIONS: Paroxysmal Atrial Fibrillation, Hypertension, Family Hx CAD, High Cholesterol, and I47.29 Other ventricular tachycardia. FINDINGS: Procedural Findings: One day rest/stress was used. Tc99m Sestamibi injected IV at rest was 10.8 millicuries 32.0 millicuries of Tc99M Sestamibi injected IV during Lexiscan stress Lexiscan 0.4mg administered IV over 10 seconds. Patient had no symptoms during stress test. Baseline heart rate was 51 BPM Maximum Heart Rate Achieved was: 64 BPM Baseline blood pressure was 142/68 mmHg Post Stress Blood Pressure was 144/70 mmHg Termination: Protocol complete. Resting ECG: Atrial paced rhythm with IVCD. Post ECG: No diagnostic ST changes. Perfusion Findings: Normal perfusion imaging. No definite fixed or reversible defects. A TID of 0.84 was automatically calculated. LV Function: Global left ventricular function is normal. Left ventricular ejection fraction is 70 %. CONCLUSIONS: Atrial paced rhythm with IVCD. No diagnostic ST changes. Global left ventricular function is normal. Left ventricular ejection fraction is 70 %. Normal perfusion imaging. No definite fixed or reversible defects. A TID of 0.84 was automatically calculated. Electronically Signed By: José Miguel Baker MD, [facility] 09/23/2024 7:44:11 AM CDT Electronically Signed By: José Miguel Baker MD, [facility] 09/23/2024 7:44:11 AM CDT Procedure Note José Miguel Baker MD - 09/23/2024 [facility] Cardiology [address] [facility] [address], [place] [address] [address] [facility] [address], [place] [address] P:[phone] P:[phone] MPI Imaging Report Patient Name: TAMICA SULLIVAN M : 1940 Study Date: 09/22/2024 8:19:09 AM Gender: F Tech: SHOLA MUNGUIA Location: [facility] Provider: SAI CARCAMO Height(Cm): 157.5 BSA: Weight(Kg): 67.6 BMI: 27.25 Order Provider: SAI CARCAMO PHYSICIAN: Referring Physician: Dr. Chavez. HCG Physician: Luca Carcamo M.D. Interpreting Physician: José Miguel Baker M.D.,F.A.CLissetteCLissette Stress Supervision: José Miguel Baker M.D.,F.A.CLissetteC. PROCEDURES: Pharmacologic SPECT Report: Myocardial perfusion imaging with Tc99M Sestamibi SPECT at rest and stresspost regadenoson (Lexiscan) infusion. INDICATIONS: Paroxysmal Atrial Fibrillation, Hypertension, Family Hx CAD, HighCholesterol, and I47.29 Other ventricular tachycardia. FINDINGS: Procedural Findings: One day rest/stress was used. Tc99m Sestamibi injected IV at rest was 10.8 millicuries 32.0 millicuries of Tc99M Sestamibi injected IV during Lexiscan stress Lexiscan 0.4mg administered IV over 10 seconds. Patient had no symptoms during stress test. Baseline heart rate was 51 BPM Maximum Heart Rate Achieved was: 64 BPM Baseline blood pressure was 142/68 mmHg Post Stress Blood Pressure was 144/70 mmHg Termination: Protocol complete. Resting ECG: Atrial paced rhythm with IVCD. Post ECG: No diagnostic ST changes. Perfusion Findings: Normal perfusion imaging. No definite fixed or reversible defects. A TIDof 0.84 was automatically calculated. LV Function: Global left ventricular function is normal. Left ventricular ejectionfraction is 70 %. CONCLUSIONS: Atrial paced rhythm with IVCD. No diagnostic ST changes. Global left ventricular function is normal. Left ventricular ejectionfraction is 70 %. Normal perfusion imaging. No definite fixed or reversible defects. A TIDof 0.84 was automatically calculated. Electronically Signed By: José Miguel Baker MD, [facility] 09/23/2024 7:44:11 AM CDT Electronically Signed By: José Miguel Baker MD, [facility] 09/23/2024 7:44:11 AM CDT Sai Carcamo MD IMG NM PROCEDURES Final R esult * DEVICE CHECK - IN OFFICE (09/08/2024 11:13 AM CDT) Anatomical Region Laterality Modality Other Narrative 09/15/2024 8:08 AM CDT Medtronic Dual Pacemaker Dx; SSS, PAF DOI 02/11/2017. Carelink remote home monitoring Q3 mo, Office pacer checks Q1 yr. Supervising MD: Dr Gimenez. Left pectoral incision well healed without signs of infection noted. Office AAIR<>DDDR Pacemaker evaluation demonstrated normal device function. Battery function-2.96V, 3.0 years remaining battery life to [facility]ARE. Appropriate lead measurements noted. Presenting rhythm: AP-VS. Underlying rhythm-Atrial Paced V Sensed @ DDD 30 bpm. Consider pacemaker dependent. AP-94%, MEDICAL STENOGRAPHER-1%. 82-mode switch episodes recorded. AF burden 2.8% Medications; Xarelto, Toprol XL. 1 ventricular high rate episode noted on 02/21/2024 iegm suggestive of NSVT, 12 beat duration 200 bpm. Atrial and ventricular amplitudes decreased to 1.5V. See scanned report. Office pacemaker f/u 12/07/2025. Carelink remote f/u 12/15/2024. Mary Arceo, SAYRA Chantelle Winter MD [facility] PROCEDU RES Final Result from Last 3 Months Insurance [facility] T MEDICARE G[facility] MEDICARE [facility] Care Teams Endocrinology Teacher Relationship Specialty Start Date End Date Prateek Chavez DO [address] [facility] [address] [place] [address] PCP - General Internal Medicine 03/10/24
--- OUTSIDE RECORDS SUMMARY | 2024-11-08 14:34 | XMS_ITS | Clinical Summary ---
Author Organization [facility] Address [address] [address] Phone Care Team Providers Care Quality Control Head Name Role Phone Shahriar Gallardo Primary Care Provider [phone] Social History Tobacco Use Types Packs/Day Years [...] to complete this topic Insurance [employer] SOI Care Teams Quality Control Head Relationship Specialty Start Date End Date Shahriar Gallardo DO [address] [place], [place] [phone] PCP - General Internal Medicine 07/30/19
--- OUTSIDE RECORDS SUMMARY | 2024-11-08 14:34 | XMS_ITS | Clinical Summary ---
Author Organization [facility] Address [address] [place] [address] Phone Care Team Providers Care Juvenile Detention Officer Name Role Phone Unavailable Primary Care Provider Unavailabl e Social History Tobacco Use Types Packs/Day Years Used Date Smoking Tobacco: Never Assessed Comments Unknown Sex and Gender Information Value Date Recorded Sex Assigned at Not on file Legal Sex Female 6:05 AM PATHOLOGY LABORATORY DIRECTOR Gender Identity Not on file Sexual Orientation [...]
--- OUTSIDE RECORDS SUMMARY | 2024-11-08 14:34 | XMS_ITS | Encounter Summary ---
Author Organization [facility] Healthcare Address [address] [place] [address] Care Team Providers Care Breeding Manager Name Role Phone Prateek Chavez DO Primary Care Provider [phone] Encounter Details Date Type Department Care Team (Late st Contact Info) Description 09/24/2024 Results Follow-Up [facility] Medical Group Cardiology at [address] [place] [address] Duy Gutierrez MD [address] [address] NM MPI SPECT (Rest and/or Stress) Multiple Studies Social History Tobacco Use Types Packs/Day Years Used Date Smoking Tobacco: Never Smokeless Tobacco: Never Alcohol Use Standard Drinks/Week Comments No 0 (1 standard drink = 0.6 oz pur e alcohol) Comments Unknown Sex and Gender Information Value Date Recorded Sex Assigned at Not on file 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
--- OUTSIDE RECORDS SUMMARY | 2024-11-08 14:34 | XMS_ITS | Clinical Summary ---
Author Organization [facility] Address [address] [place] [place] [address] Care Team Providers Care Pet Supplies Salesperson Name Role Phone Shahriar Gallardo Primary Care Provider Source Comments [facility],non-owned Affiliates and Associated Physician Practices is amultiple site organization consisting of ambulatory clinics and hospital sitesin [place], [place], [place] and [place]. This disclosure is being madepursuant to the Care Everywhere program and may not contain all information available regarding this patient. Last updated [address] Allergies No known active allergies Medications * [...] tablet by mouth once daily Active Glucosamine-Cho ritkcq-CCF-Z-Mn (Flexi Joint) TABS Take 400-500 mg by [...] Insurance [employer] MEDICARE ADV Care Teams Pet Supplies Salesperson Relationship Specialty Start Date End Date Shahriar Gallardo DO [address] [facility] [address] [place] [address] [facility] - General 12/09/20
--- OUTSIDE RECORDS SUMMARY | 2024-11-08 14:34 | XMS_ITS | Clinical Summary ---
Author Organization [facility] [address] Address [address] [place] [address] Care Team Providers Care Senior Designer Name Role Phone Prateek Chavez DO Primary Care Provider [phone] Allergies No known active allergies Medications losartan [...] Awareness of heartbeats 09/09/201603/17 Overview (11/08/2016): Palpitations Encounters Date Type Department Care Team Description 09/24/2024 Results Follow-Up [facility] Cardiology at [address] [place] [address] Sai Carcamo MD NM MPI SPECT (Rest and/or Stress) Multiple Studies 09/22/2024 10:15 AM CDT Ancillary Procedure [facility] Cardiology [address] [facility] [address] [place] [address] Nonsustained ventricular tachycardia (HCC) 09/15/[address] [facility] Cardiology [address] [facility] [address] [place] [address] Sai Carcamo MD 09/08/2024 11:30 AM CDT Ancillary Procedure [facility] Cardiology [address] [place] [address] [address] [place] [phone] Pacemaker (Primary Dx); SSS (sick sinus syndrome) (HCC); PAF (paroxysmal atrial fibrillation) (HCC) from Last 3 Months Medical History Medical History Date Comments Hx Other Medical Colectomy for o bstruction; Comments: [facility] 09/09/2016 - Hx Other Medical Thyroidectomy f or cancer; Comments: [facility] 09/09/2016 - Hx Other Medical Hysterectomy; C omments: [facility] 09/09/2016 - Family History Medical History Relation Name Comments Alzheimer's disease Father 2 Alzheime r's disease; Other Mother 2 Bad reaction to med after back surgery; Cause of : Bad reaction to med after back surgery Relation Name Status Comments Father 1 (Age 93) Father 2 Mother 1 Mother 2 Social History Tobacco Use Types Packs/Day Years Used Date Smoking Tobacco: Never Smokeless Tobacco: Never Tobacco Cessation:Counseling Given: Not Answered Alcohol Use Standard Drinks/Week Comments No 0 (1 standard drink = 0.6 oz pur e alcohol) Comments Unknown Sex and Gender Information Value Date Recorded Sex Assigned at Not on file Legal Sex Female 9:55 PM INSPECTOR MACHINED PARTS Gender Identity Not on file Sexual Orientation Not on file Obstetrics History Last Filed Vital Signs Vital Sign Reading Time Taken Comments Blood Pressure 171/84 05/17/2024 2:29 PM INSPECTOR MACHINED PARTS Pulse 78 03/10/2024 3:24 PM CDT Temperature 36.5 C (97.7 F) 12/03/2019 10:06 AM CDT Respiratory Rate - - Oxygen Saturation 97% 03/10/2024 3:24 PM CDT Inhaled Oxygen Concentration - - Weight 67.6 kg (149 lb) 03/10/2024 3:24 PM CDT Height 157.5 cm (5' 2) 03/10/2024 3:24 PM CDT Body Mass Index 27.25 03/10/2024 3:24 PM CDT Plan of Treatment Health Maintenance Due Date Last Done Comments Depression Screening 1940 Fall Risk Assessment 1940 Osteoporosis Screening-Bone Density Scan 1940 DTaP/Tdap/Td Vaccine (1 - Tdap) 1952 Hepatitis B Screening 12/21/1959 Well Visit 65+ 2006 Zoster Vaccine (2 of 3) 06/08/2014 04/13/2014 Influenza Vaccine (Season Ended) 2025 04/05/2019, 04/08/2018, 03/16/2017, Additional history exists Pneumococcal vaccine 65+ Completed 04/05/2019, 05/16 Medical Devices Implanted Type Area Catalog Library Assistant Device Identifier Shelf Expiration Date Model / Serial / Lot Pacemaker-2016 Implanted:02/11 by Chantelle Winter MD (Quantity not on file) Pacemaker Chest Medtronic SSS ADVISA DR DE LA ROSA / [id number] / Procedures Procedure Name Priority Date/Time Associated [...] AM CDT Narrative 09/23/2024 7:44 AM CDT [facility] Medical Group Cardiology [address] [facility] [address], [place] [address] [address], [place] [address] P:[phone] P:[phone] MPI Imaging Report Patient Name: TAMICA SULLIVAN M : 1940 Study Date: 09/22/2024 8:19:09 AM Gender: F Tech: [facility] Location: [facility] Provider: SAI CARCAMO Height(Cm): 157.5 BSA: Weight(Kg): [...] Electronically Signed By: José Miguel Baker MD, [facility] 09/23/2024 7:44:11 AM CDT Electronically Signed By: José Miguel Baker MD, [facility] 09/23/2024 7:44:11 AM CDT Procedure Note José Miguel Baker MD - 09/23/2024 [facility] Medical Group Cardiology [address] [facility] [address] [address] [address] [facility] [address], [place] [address] P:[phone] P:[phone] MPI Imaging Report Patient Name: TAMICA SULLIVAN M : 1940 Study Date: 09/22/2024 8:19:09 AM Gender: F Tech: [facility] Location: [facility] Provider: SAI CARCAMO Height(Cm): 157.5 BSA: Weight(Kg): [...] Electronically Signed By: José Miguel Baker MD, [facility] 09/23/2024 7:44:11 AM CDT Electronically Signed By: José Miguel Baker MD, [facility] 09/23/2024 7:44:11 AM CDT Sai Carcamo MD [facility] PROCEDURES Final R esult * DEVICE CHECK - IN OFFICE (09/08/2024 11:13 AM CDT) Anatomical Region Laterality Modality Other Narrative 09/15/2024 8:08 AM CDT Medtronic Dual Pacemaker Dx; SSS, PAF DOI 02/11/2017. [employer] remote home monitoring Q3 mo, Office pacer checks Q1 yr. Supervising MD: Dr Gimenez. Left pectoral incision well healed without signs of infection noted. Office AAIR<>DDDR Pacemaker evaluation demonstrated normal device function. Battery function-2.96V, 3.0 years remaining battery life to [facility]ARE. Appropriate lead measurements noted. Presenting rhythm: AP-VS. Underlying rhythm-Atrial Paced V Sensed @ DDD 30 bpm. Consider pacemaker dependent. AP-94%, TRACTOR TECHNICIAN-1%. 82-mode switch episodes recorded. AF burden 2.8% [...] Final Result from Last 3 Months Insurance [facility] MEDICARE GOLD [employer] MEDICARE GOLD Care Teams Senior Designer Relationship Specialty Start Date End Date Prateek Chavez DO [address] [facility] [address] [place] [address] PCP - General Internal Medicine 03/10/24
[2024-11-08 15:42] VITALS: PULSE 86; RESP 24
[2024-11-08] MEDS: IPRATROPIUM 0.5 MG/ALBUTEROL SULFATE 2.5 MG AMPUL.NEB 3 ML INHALATION (15:42)
[2024-11-08 15:44] VITALS: PULSE 64; RESP 24
[2024-11-08 15:55] LABS: Basophils Percent Auto 0.5 % (0.2-1.2); Eosinophils Absolute Auto 0.1 K/mm3 (0-0.3); Eosinophils Percent Auto 1.4 % (0-4.4); Hematocrit 35.3 % (37.0-47.0); Hemoglobin 11.9 g/dL (12.0-15.0); Immature Granulocyte Absolute 0.01 K/mm3 (0.00-0.031); Immature Granulocyte Percent A 0.2 % (0-0.5); Lymphocytes Absolute Auto 1.08 K/mm3 (0.9-3.2); Lymphocytes Percent Auto 19.1 % (18.3-44.2); Mean Corpuscular HGB Conc 33.7 g/dl (32-36); Mean Corpuscular Hemoglobin 28.5 pg (26-34); Mean Corpuscular Volume 84.7 fl (80-100); Mean Platelet Volume 10.7 fl (7.4-10.4); Monocytes Absolute Auto 0.8 K/mm3 (0.1-0.6); Monocytes Percent Auto 14.1 % (2.6-8.5); Neutrophils Absolute Auto 3.7 K/mm3 (1.3-6.7); Neutrophils Percent Auto 64.7 % (45.5-73.1); Platelet Count Result 199 k/mm3 (150-375); Red Blood Count 4.17 M/mm3 (4.2-5.4); White Blood Count 5.7 K/mm3 (4.5-10.0)
[2024-11-08 16:05] LABS: Alanine Aminotransferase 17 U/L (6-35); Albumin Level 4.7 g/dL (3.5-5.1); Alkaline Phosphatase 135 U/L (38-126); Anion Gap 11 mmol/L (4-12); Aspartate Amino Transferase 37 U/L (14-36); Bilirubin,Total 0.6 mg/dL (0.2-1.3); Blood Urea Nitrogen 14 mg/dL (7-17); Calcium 9.6 mg/dL (8.4-10.2); Carbon Dioxide 26 mmol/L (22-30); Chloride 89 mmol/L (98-107); Estimated CRCL calculation 34 ml/min; Estimated Glomerular Filt Rate 52; Glucose 97 mg/dL (65-110); Potassium 3.7 mmol/L (3.4-5.0); Sodium 126 mmol/L (137-145)
[2024-11-08 16:07] LABS: INR 1.6
[2024-11-08 16:17] LABS: Troponin I < 0.012 ng/mL (0.000-0.034)
[2024-11-08 16:32] LABS: Influenza A QL RT-PCR Negative (Negative); Influenza B QL RT-PCR Negative (Negative); RSV RNA, RT-PCR Negative (Negative); SARS-CoV-2 RNA PCR Negative (Negative)
--- NOTE | 2024-11-08 16:53 | ED_ITS ---
HPI - General Adult General Chief complaint: Upper Respiratory Infection Stated complaint: URI x5d, sob Time Seen by Provider: 11/08/24 16:24 Source: patient Mode of arrival: ambulatory Limitations: no limitations History of Present Illness HPI narrative: 83 years old white female came to the ED with nasal, postnasal congestion, productive cough of clear sputum started 6 days ago 1 day after cleaning her patch 2. History of lot of allergy mainly seasonal allergy. Associated with shortness of breath on exertion. She denies any chest pain Related Data Home Medications ?Medication ?Instructions ?Recorded ?Confirmed ?Last Taken ?Type cetirizine 10 mg tablet (All Day 10 mg PO DAILY PRN Allergy Symptoms 06/08/19 02/27/24 Unknown History Allergy (cetirizine)) glucosamine sulfate 500 mg tablet 500 mg PO BID 06/08/19 02/27/24 10/18/20 08:00 History (Glucosamine) magnesium 250 mg tablet 250 mg PO DAILY 06/08/19 02/27/24 10/18/20 08:00 History mecobalamin (vitamin B12) 1,000 1,000 mcg sublingual DAILY 06/08/19 02/27/24 10/18/20 08:00 History mcg disintegrating tablet,sublingual pyridoxine (vitamin B6) 50 mg 50 mg PO DAILY 06/08/19 02/27/24 10/18/20 08:00 History tablet rivaroxaban 20 mg tablet (Xarelto) 15 mg PO DAILY 06/08/19 02/27/24 10/14/20 19:00 History zinc sulfate 66 mg tablet (Zinc-15) 66 mg PO DAILY 06/08/19 02/27/24 10/18/20 08:00 History vitamin E 200 unit capsule 200 unit PO DAILY 06/14/19 02/27/24 10/15/20 08:00 History Acidophilus Probiotic 1 caplet PO DAILY 10/19/20 02/27/24 10/18/20 08:00 History B-Complex W/Vitamin B-12 1 caplet PO DAILY 10/19/20 02/27/24 10/18/20 08:00 History potassium 1 caplet PO DAILY 10/19/20 02/27/24 10/18/20 08:00 History Allergies Allergy/AdvReac Type Severity Reaction Status Date / Time No Known Drug Allergies Allergy Unknown X Verified 03/03/24 15:01 Review of Systems 2 Review of Systems: All systems reviewed & are unremarkable except as noted in HPI and below PMFSH Past Medical History Medical History Anemia Elevated LDL cholesterol level Hx of atrial fibrillation without current medication Essential (primary) hypertension Hx of thyroid cancer Surgical History Surgical History H/O colonoscopy H/O hemicolectomy History of hysterectomy Status post placement of other cardiac pacemaker Family History Family History Father Patient's father is Mother Patient's mother is Sibling No problems noted. Social History Social History Smoking status: Never smoker Second hand tobacco smoke exposure: No Alcohol intake: never Substance use: never Substance use type: does not use Do You Feel Safe in your Home?: Yes Lack of Transportation: No Lack of Food: Never True Current Housing: I Do Not Have Housing Concerned About Future Housing: No Difficulty Paying Gas/Electric Bills: No Difficulty Paying for Meds: No Currently Unemployed: Decline to Answer Education: Decline to Answer Difficulty w/ Childcare or Family Care: No Living arrangements: with family Occupation/Education: retired Additional occupation/education comments: Hairdresser Gender identity (if verbalized by the patient): Female Spiritual care concerns: No Exam 2 Narrative: General appearance: Well-developed, well-nourished intermittent productive cough Skin: Normal color Head: Normocephalic, nontraumatic Eyes: Clear conjunctiva ENT: Oropharynx normal, ears normal, nose normal Neck: Supple, nontender Chest and respiratory: Airway patent, no respiratory distress, no accessory muscle use Heart: Regular rate/rhythm Abdomen: Soft, nontender, no organomegaly, quiet bowel sounds Vascular: Normal peripheral pulses, normal capillary refill. Musculoskeletal: Normal range of motion, nontender back Neurologic: Alert and oriented ?3, [employer] is normal as tested, no gross motor deficit Course Vital Signs Vital signs: Vital Signs Temperature 36.4 C 11/08/24 14:03 Pulse Rate 68 11/08/24 14:03 Respiratory Rate 18 11/08/24 14:03 Blood Pressure 143/66 H 11/08/24 14:03 Pulse Oximetry 98 11/08/24 14:03 Oxygen Delivery Room Air 11/08/24 14:03 Temperature 36.4 C 11/08/24 14:03 Pulse Rate 64 11/08/24 15:44 Respiratory Rate 24 H 11/08/24 15:44 Blood Pressure 143/66 H 11/08/24 14:03 Pulse Oximetry 98 11/08/24 14:03 Oxygen Delivery Room Air 11/08/24 14:03 Medical Decision Making [facility] Narrative Medical decision making narrative: Patient came with nasal congestion and postnasal discharge and productive cough, history of seasonal allergy Vital signs are stable Physical examination consistent with nasal and postnasal congestion and drainage Differential diagnosis include allergic rhinitis, bronchospasm, less likely pneumonia. Blood workup today includes CBC, CMP showed sodium 126. Patient declined to be hospitalized and would like to eat food have extra sodium and it. Chest x-ray showed no acute abnormality. Patient decided to sign against medical advice. I declare that I have personally explained to the patient the risks and consequences involved in leaving this facility at this time. the benefits of continued treatment and/or hospitalization. And the alternatives. If any. to continued treatment and/or hospitalization. if applicable.I have not identified any psychosis, drugs, mental illness, or medical illness that alters decision- making capacity (reasoning abilities ). Differential Diagnosis Differential Diagnosis: As above Vital Signs Vital Signs: Vital Signs Temperature 36.4 C 11/08/24 14:03 Pulse Rate 68 11/08/24 14:03 Respiratory Rate 18 11/08/24 14:03 Blood Pressure 143/66 H 11/08/24 14:03 Pulse Oximetry 98 11/08/24 14:03 Oxygen Delivery Room Air 11/08/24 14:03 Temperature 36.4 C 11/08/24 14:03 Pulse Rate 64 11/08/24 15:44 Respiratory Rate 24 H 11/08/24 15:44 Blood Pressure 143/66 H 11/08/24 14:03 Pulse Oximetry 98 11/08/24 14:03 Oxygen Delivery Room Air 11/08/24 14:03 Lab Data 11/08/24 15:49 11/08/24 15:49 Labs: Lab Results 11/08/24 Range/Units 15:49 WBC 5.7 (4.5-10.0) K/mm3 RBC 4.17 L (4.2-5.4) M/mm3 Hgb 11.9 L (12.0-15.0) g/dL Hct 35.3 L (37.0-47.0) % MCV 84.7 (80-100) fl MCH 28.5 (26-34) pg MCHC 33.7 (32-36) g/dl RDW 13.0 (11.5-14.5) % Plt Count 199 (150-375) k/mm3 MPV 10.7 H (7.4-10.4) fl Immature Gran % (Auto) 0.2 (0-0.5) % Neut % (Auto) 64.7 (45.5-73.1) % Lymph % (Auto) 19.1 (18.3-44.2) % [place] % (Auto) 14.1 H (2.6-8.5) % Eos % (Auto) 1.4 (0-4.4) % Baso % (Auto) 0.5 (0.2-1.2) % Lymph # (Auto) 1.08 (0.9-3.2) K/mm3 [place] # (Auto) 0.8 H (0.1-0.6) K/mm3 Eos # (Auto) 0.1 (0-0.3) K/mm3 Baso # (Auto) 0.0 (0.0-0.1) K/mm3 Abs Immat Gran (auto) 0.01 (0.00-0.031) K/mm3 Absolute Neuts (auto) 3.7 (1.3-6.7) K/mm3 Absolute Nucleated RBC 0.000 (0.0-0.012) K/mm3 Nucleated RBC % 0.0 (0.0-0.2) % PT 19.0 H (11.1-14.7) Seconds INR 1.6 APTT 41.0 H (22.3-36.8) Seconds Sodium 126 L (137-145) mmol/L Potassium 3.7 (3.4-5.0) mmol/L Chloride 89 L (98-107) mmol/L Carbon Dioxide 26 (22-30) mmol/L Anion Gap 11 (4-12) mmol/L BUN 14 (7-17) mg/dL Creatinine 1.02 H (0.7-1.0) mg/dL Estim Creat Clear Calc 34 ml/min Estimated GFR 52 L (59 - ) Glucose 97 (65-110) mg/dL Calcium 9.6 (8.4-10.2) mg/dL Total Bilirubin 0.6 (0.2-1.3) mg/dL AST 37 H (14-36) U/L ALT 17 (6-35) U/L Alkaline Phosphatase 135 H (38-126) U/L Troponin I < 0.012 (0.000-0.034) ng/mL Total Protein 8.0 (6.3-8.2) g/dL Albumin 4.7 (3.5-5.1) g/dL Influenza A (RT-PCR) Negative (Negative) Influenza B (RT-PCR) Negative (Negative) RSV (RT-PCR) Negative (Negative) SARS-CoV-2 RNA (RT-PCR) Negative (Negative) Critical Care Time Critical Care Time Critical Care Time: No Discharge Plan Discharge Clinical Impression: Allergic rhinitis, Acute hyponatremia Patient Disposition: Left Against Medical Advice Condition: Guarded Prognosis Instructions: Hyponatremia (ED), Allergies (ED) Additional Instructions: Continue home medicine Food have high level of salt include Beats a Cold cuts Cheese Checking brought Soup Fast food Prepared dinners Pickles Canned soups Patient Language: Belarusian Prescriptions: New prednisone 20 mg tablet 40 mg PO DAILY 5 Days Qty: 10 0RF fluticasone propionate [Flonase Allergy Relief] 50 mcg/actuation spray,suspension 2 spray intranasal DAILY Qty: 36.4 0RF Rx Instructions: administer into each nostril Zyrtec 10 mg capsule 10 mg PO DAILY PRN (Reason: allergy symptoms) Qty: 30 0RF benzonatate 200 mg capsule 200 mg PO TID PRN (Reason: cough) Qty: 21 0RF No Action glucosamine sulfate [Glucosamine] 500 mg tablet 500 mg PO BID pyridoxine (vitamin B6) 50 mg tablet 50 mg PO DAILY magnesium 250 mg tablet 250 mg PO DAILY Zinc-15 66 mg tablet 66 mg PO DAILY mecobalamin (vitamin B12) 1,000 mcg tablet,disintegrating 1,000 mcg SUBLINGUAL DAILY cetirizine [All Day Allergy (cetirizine)] 10 mg tablet 10 mg PO DAILY PRN (Reason: Allergy Symptoms) Xarelto 20 mg tablet 15 mg PO DAILY vitamin E 200 unit capsule 200 unit PO DAILY amlodipine 5 mg tablet 5 mg PO DAILY Qty: 30 5RF metoprolol succinate 50 mg tablet extended release 24 hr 50 mg PO DAILY Qty: 90 1RF B-Complex W/Vitamin B-12 50 mg capsule 1 caplet PO DAILY potassium 99 mg capsule 1 caplet PO DAILY Acidophilus Probiotic 100 mg capsule 1 caplet PO DAILY cyclobenzaprine 10 mg tablet 10 mg PO .HS PRN (Reason: muscle spasm) Qty: 15 0RF hydrochlorothiazide 25 mg tablet 25 mg PO DAILY Qty: 90 3RF levothyroxine 125 mcg tablet 125 mcg PO DAILY Qty: 90 2RF losartan 100 mg tablet 100 mg PO DAILY Qty: 90 3RF terazosin 2 mg capsule See Rx Instructions .ROUTE .COMPLEX Qty: 90 3RF Dose Instruction: Take 1 capsule by mouth at bedtime Rx Instructions: Take 1 capsule by mouth at bedtime Follow-up/Referrals: Paulina,Shahriar Hardwick DO [Primary Care Provider] -
[2024-11-08 18:00] VITALS: O2SAT 98
== END 2024-11-08 18:10 | disposition left against medical advice (07) ==
PROVIDERS: Physician Assistant; Emergency Provider Emergency Medicine; PCP Internal Medicine
DX: J30.9 Allergic rhinitis, unspecified (principal); E87.1 Hypo-osmolality and hyponatremia; Z20.822 Contact with and (suspected) exposure to COVID-19; I48.91 Unspecified atrial fibrillation; I10 Essential (primary) hypertension; Z85.850 Personal history of malignant neoplasm of thyroid; Z90.49 Acquired absence of other specified parts of digestive tract; Z90.710 Acquired absence of both cervix and uterus; Z79.01 Long term (current) use of anticoagulants; Z79.899 Other long term (current) drug therapy; I44.7 Left bundle-branch block, unspecified
CPT/HCPCS: 36415; 71046; 80053; 84484; 85025; 85610; 85730; 87637; 93005; 94640; 99284